=== PATIENT | male | born 1940 | race Caucasian/White ===

== ENCOUNTER 2020-05-03 12:34 | Observation (INO) | payer MEDICARE, BC ==
--- NOTE | 2020-05-03 13:48 | CT ---
PROCEDURE INFORMATION: Exam: CT Head Without Contrast Exam date and time: 05/03/2020 1:13 PM Age: 79 years old Clinical indication: Injury or trauma; Fall; Abrasion; Forehead; Additional info: Fall wed, confusion, drowsy TECHNIQUE: Imaging protocol: Computed tomography of the head without contrast. Radiation optimization: All CT scans at this facility use at least one of these dose optimization techniques: automated exposure control; mA and/or kV adjustment per patient size (includes targeted exams where dose is matched to clinical indication); or iterative reconstruction. COMPARISON: No relevant prior studies available. FINDINGS: Brain: There is an expected degree of age-related atrophy and chronic white matter ischemic changes. No acute intra-axial or extra-axial hemorrhage appreciated. Multiple small hypodensities at the basal ganglia consistent with remote lacunar infarctions. Cerebral ventricles: No ventriculomegaly. Bones/joints: Unremarkable. No acute fracture. Paranasal sinuses: Visualized sinuses are unremarkable. No fluid levels. Mastoid air cells: Visualized mastoid air cells are well aerated. Soft tissues: Unremarkable. IMPRESSION: 1. There is an expected degree of age-related atrophy and chronic white matter ischemic changes. 2. No acute intra-axial or extra-axial hemorrhage appreciated. 3. Multiple small hypodensities at the basal ganglia consistent with remote lacunar infarctions.
[2020-05-03 13:49] LABS: PTT,PARTIAL THROMBOPLSTIN TIME 27.7 SEC (22.0-34.0)
--- NOTE | 2020-05-03 14:10 | EDM.PDOC ---
"ED HPI GENERAL MEDICAL PROBLEM - General Chief Complaint: Head Injury Stated Complaint: HIT HEAD ON GRAVEL WED, HAS BEEN UNSTEADY SINCE Time Seen by Provider: 05/03/20 13:00 Source of Information: Reports: Patient, RN, RN Notes Reviewed History Limitations: Reports: No Limitations - History of Present Illness INITIAL COMMENTS - FREE TEXT/NARRATIVE: Patient presents to the ED via personal vehicle with complaints of unsteadiness following a fall two days ago. The patient states he tripped on the ice two days ago and landed on his left lateral face and head. He denies LOC during the event. The patient states his feels he has been more confused and unsteady. The patient denies recent illness, fever, shaking chills, nausea, vomiting, or diarrhea. He states he takes aspirin daily. - Related Data Allergies Allergy/AdvReac Type Severity Reaction Status Date / Time No Known Allergies Allergy Verified 05/03/20 12:53 Home Meds: Home Meds Aspirin [Halfprin] 81 mg PO DAILY 05/29/14 [History] Levothyroxine [Synthroid] 50 mcg PO ACBRK 05/29/14 [History] Lisinopril 30 mg PO BID 05/29/14 [History] Omeprazole 20 mg PO DAILY 05/29/14 [History] Saw [place] Fruit [Saw C[place]] 900 mg PO DAILY 05/29/14 [History] Simvastatin 40 mg PO DAILY 05/29/14 [History] metFORMIN [Glucophage] 500 mg PO DAILY 05/29/14 [History] Psyllium [Metamucil] 1 dose PO DAILY 01/07/15 [History] Naproxen Sodium [Aleve] 220 mg PO Q8HR PRN 01/08/15 [History] Past Medical History Other HEENT History: WEARS CORRECTIVE LENSES Cardiovascular History: Reports: High Cholesterol, Hypertension Other Cardiovascular History: MURMUR NO LONGER PRESENT PER PATIENT REPORT Gastrointestinal History: Reports: GERD Other Gastrointestinal History: INTERNAL HEMORRHOIDS; PANCOLONIC DIVERTICULOSIS Other Genitourinary History: 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 ED EXAM, HEAD INJURY - Physical Exam Exam: See Below Exam Limited By: No Limitations General Appearance: Alert, No Apparent Distress Head: Facial Abrasions (To left eyebrow), Facial Ecchymosis (To left eyebrow and left lateral chin), Facial Swelling (To left eyebrow and left lateral chin), Facial Tenderness. No: Scalp Lacerations, Scalp Swelling, Scalp Abrasions, Scalp Ecchymosis, Scalp Hematoma, Scalp Tenderness, Active Bleeding, Putnam's Sign, Facial Lacerations, Sinus Tenderness Nexus Criteria: No: Posterior, Midline Cervical Tenderness, Evidence of Intoxication, Altered Level of Consciousness, Focal Neurological Deficit, Painful Distraction Injuries Eyes: Bilateral Eye: EOMI, Normal Inspection, PERRL (4mm) Throat/Mouth: Normal Inspection, Normal Voice, No Airway Compromise Neck: Non-Tender, Full Range of Motion, Normal Alignment, Normal Inspection. No: Tenderness, Tender Lateral, Tender Midline Respiratory: No Respiratory Distress, Normal Breath Sounds, No Accessory Muscle Use, Chest Non-Tender, Decreased Breath Sounds Cardiovascular: Normal Peripheral Pulses, Regular Rate, Rhythm, No Edema, No Gallop, No JVD, No Murmur, No Rub GI/Abdominal Exam: Normal Bowel Sounds, Soft, Non-Tender, No Distention, No Mass, Pelvis Stable Back Exam: Normal Inspection, Full Range of Motion Extremities: Normal Inspection, Normal Range of Motion, Non-Tender, No Pedal Edema, Normal Capillary Refill Neurologic: Alert, Normal Mood/Affect, Oriented x 3, Abnormal Gait (Unsteady on feet), Other (Slow to respond). No: Facial Droop, Motor Weakness, Sensory Deficit Skin: Normal Color, Warm/Dry, Ecchymosis (To left eyebrow and lateral chin) - [place] Coma Score Best Eye Response ([place]): (4) Open Spontaneously Best Verbal Response ([place]): (5) Oriented Best Motor Response ([place]): (6) Obeys Commands Course - Vital Signs Last Recorded V/S: Last Vital Signs Temp 99.6 F 05/03/20 12:41 Pulse 88 05/03/20 12:41 Resp 18 05/03/20 12:41 BP 161/76 H 05/03/20 12:41 Pulse Ox 93 L 05/03/20 12:41 - Orders/Labs/Meds Labs: Laboratory Tests 05/03/20 05/03/20 05/03/20 Range/Units 13:25 13:25 13:25 WBC 5.1 (5.0-10.0) 10^3/uL RBC 4.21 L (4.6-6.2) 10^6/uL Hgb 13.4 L (14.0-18.0) g/dL Hct 39.4 L (40.0-54.0) % MCV 93.6 (80-100) fL MCH 31.8 (27.0-34.0) pg MCHC 34.0 (33.0-35.0) g/dL Plt Count 89 L (150-450) 10^3/uL Add Manual Diff Yes Neutrophils % (Manual) 68 (42-75) % Band Neutrophils % 3 % Lymphocytes % (Manual) 17 L (20-50) % Monocytes % (Manual) 10 H (2-8) % Eosinophils % (Manual) 1 (1-3) % Basophils % (Manual) 1 PT 10.8 (9.0-12.0) SEC INR 1.1 (0.9-1.2) APTT 27.7 (22.0-34.0) SEC Sodium 135 L (136-145) mmol/L Potassium 4.0 (3.5-5.1) mmol/L Chloride 97 L (98-107) mmol/L Carbon Dioxide 29 (21-32) mmol/L Anion Gap 13.0 (7-13) mEq/L BUN 20 H (7-18) mg/dL Creatinine 1.21 (0.70-1.30) mg/dL Est Cr Clr Drug Dosing 50.31 mL/min Estimated GFR (MDRD) 58 BUN/Creatinine Ratio 16.5 (No establ ref range) Glucose 101 H (74-99) mg/dL Calcium 9.0 (8.5-10.1) mg/dL Magnesium 1.7 L (1.8-2.4) mg/dL Total Bilirubin 0.6 (0.2-1.0) mg/dL AST 29 (15-37) U/L ALT 28 (16-63) U/L Alkaline Phosphatase 72 (46-116) U/L Ammonia (11-32) umol/L B-Natriuretic Peptide 47 (0-100) pg/ml Total Protein 7.8 (6.4-8.2) g/dL Albumin 3.8 (3.4-5.0) g/dL Globulin 4.0 Albumin/Globulin Ratio 0.9 TSH, Ultra Sensitive (0.36-3.74) uIU/mL Urine Color (YELLOW) Urine Appearance (CLEAR) Urine pH (5.0-9.0) Ur Specific [place] (1.005-1.030) Urine Protein (NEGATIVE) Urine Glucose (UA) (NEGATIVE) Urine Ketones (NEGATIVE) Urine Occult Blood (NEGATIVE) Urine Nitrite (NEGATIVE) Urine Bilirubin (NEGATIVE) Urine Urobilinogen (0.2-1.0) mg/dL Ur Leukocyte Esterase (NEGATIVE) Urine RBC /HPF Urine WBC (0-5/HPF) /HPF Ur Epithelial Cells (NOT SEEN) /HPF Urine Mucus (NOT SEEN) /LPF Urine Opiates Screen (NEGATIVE) Ur Oxycodone Screen (NEGATIVE) Urine Methadone Screen (NEGATIVE) Ur Barbiturates Screen (NEGATIVE) U Tricyclic Antidepress (NEGATIVE) Ur Phencyclidine Scrn (NEGATIVE) Ur Amphetamine Screen (NEGATIVE) U Methamphetamines Scrn (NEGATIVE) Urine MDMA Screen (NEGATIVE) U Benzodiazepines Scrn (NEGATIVE) Urine Cocaine Screen (NEGATIVE) U Marijuana (THC) Screen (NEGATIVE) Ethyl Alcohol (0) mg/dL 05/03/20 05/03/20 05/03/20 Range/Units 13:25 13:25 14:40 WBC (5.0-10.0) 10^3/uL RBC (4.6-6.2) 10^6/uL Hgb (14.0-18.0) g/dL Hct (40.0-54.0) % MCV (80-100) fL MCH (27.0-34.0) pg MCHC (33.0-35.0) g/dL Plt Count (150-450) 10^3/uL Add Manual Diff Neutrophils % (Manual) (42-75) % Band Neutrophils % % Lymphocytes % (Manual) (20-50) % Monocytes % (Manual) (2-8) % Eosinophils % (Manual) (1-3) % Basophils % (Manual) PT (9.0-12.0) SEC INR (0.9-1.2) APTT (22.0-34.0) SEC Sodium (136-145) mmol/L Potassium (3.5-5.1) mmol/L Chloride (98-107) mmol/L Carbon Dioxide (21-32) mmol/L Anion Gap (7-13) mEq/L BUN (7-18) mg/dL Creatinine (0.70-1.30) mg/dL Est Cr Clr Drug Dosing mL/min Estimated GFR (MDRD) BUN/Creatinine Ratio (No establ ref range) Glucose (74-99) mg/dL Calcium (8.5-10.1) mg/dL Magnesium (1.8-2.4) mg/dL Total Bilirubin (0.2-1.0) mg/dL AST (15-37) U/L ALT (16-63) U/L Alkaline Phosphatase (46-116) U/L Ammonia (11-32) umol/L B-Natriuretic Peptide (0-100) pg/ml Total Protein (6.4-8.2) g/dL Albumin (3.4-5.0) g/dL Globulin Albumin/Globulin Ratio TSH, Ultra Sensitive 2.38 (0.36-3.74) uIU/mL Urine Color Yellow (YELLOW) Urine Appearance Clear (CLEAR) Urine pH 6.0 (5.0-9.0) Ur Specific [place] 1.025 (1.005-1.030) Urine Protein 30 H (NEGATIVE) Urine Glucose (UA) Negative (NEGATIVE) Urine Ketones Negative (NEGATIVE) Urine Occult Blood Small H (NEGATIVE) Urine Nitrite Negative (NEGATIVE) Urine Bilirubin Negative (NEGATIVE) Urine Urobilinogen 0.2 (0.2-1.0) mg/dL Ur Leukocyte Esterase Negative (NEGATIVE) Urine RBC 0-5 /HPF Urine WBC 0-5 (0-5/HPF) /HPF Ur Epithelial Cells Few (NOT SEEN) /HPF Urine Mucus Few H (NOT SEEN) /LPF Urine Opiates Screen (NEGATIVE) Ur Oxycodone Screen (NEGATIVE) Urine Methadone Screen (NEGATIVE) Ur Barbiturates Screen (NEGATIVE) U Tricyclic Antidepress (NEGATIVE) Ur Phencyclidine Scrn (NEGATIVE) Ur Amphetamine Screen (NEGATIVE) U Methamphetamines Scrn (NEGATIVE) Urine MDMA Screen (NEGATIVE) U Benzodiazepines Scrn (NEGATIVE) Urine Cocaine Screen (NEGATIVE) U Marijuana (THC) Screen (NEGATIVE) Ethyl Alcohol < 3 (0) mg/dL 05/03/20 05/03/20 Range/Units 14:40 14:46 WBC (5.0-10.0) 10^3/uL RBC (4.6-6.2) 10^6/uL Hgb (14.0-18.0) g/dL Hct (40.0-54.0) % MCV (80-100) fL MCH (27.0-34.0) pg MCHC (33.0-35.0) g/dL Plt Count (150-450) 10^3/uL Add Manual Diff Neutrophils % (Manual) (42-75) % Band Neutrophils % % Lymphocytes % (Manual) (20-50) % Monocytes % (Manual) (2-8) % Eosinophils % (Manual) (1-3) % Basophils % (Manual) PT (9.0-12.0) SEC INR (0.9-1.2) APTT (22.0-34.0) SEC Sodium (136-145) mmol/L Potassium (3.5-5.1) mmol/L Chloride (98-107) mmol/L Carbon Dioxide (21-32) mmol/L Anion Gap (7-13) mEq/L BUN (7-18) mg/dL Creatinine (0.70-1.30) mg/dL Est Cr Clr Drug Dosing mL/min Estimated GFR (MDRD) BUN/Creatinine Ratio (No establ ref range) Glucose (74-99) mg/dL Calcium (8.5-10.1) mg/dL Magnesium (1.8-2.4) mg/dL Total Bilirubin (0.2-1.0) mg/dL AST (15-37) U/L ALT (16-63) U/L Alkaline Phosphatase (46-116) U/L Ammonia 51 H (11-32) umol/L B-Natriuretic Peptide (0-100) pg/ml Total Protein (6.4-8.2) g/dL Albumin (3.4-5.0) g/dL Globulin Albumin/Globulin Ratio TSH, Ultra Sensitive (0.36-3.74) uIU/mL Urine Color (YELLOW) Urine Appearance (CLEAR) Urine pH (5.0-9.0) Ur Specific [place] (1.005-1.030) Urine Protein (NEGATIVE) Urine Glucose (UA) (NEGATIVE) Urine Ketones (NEGATIVE) Urine Occult Blood (NEGATIVE) Urine Nitrite (NEGATIVE) Urine Bilirubin (NEGATIVE) Urine Urobilinogen (0.2-1.0) mg/dL Ur Leukocyte Esterase (NEGATIVE) Urine RBC /HPF Urine WBC (0-5/HPF) /HPF Ur Epithelial Cells (NOT SEEN) /HPF Urine Mucus (NOT SEEN) /LPF Urine Opiates Screen Negative (NEGATIVE) Ur Oxycodone Screen Negative (NEGATIVE) Urine Methadone Screen Negative (NEGATIVE) Ur Barbiturates Screen Negative (NEGATIVE) U Tricyclic Antidepress Negative (NEGATIVE) Ur Phencyclidine Scrn Negative (NEGATIVE) Ur Amphetamine Screen Negative (NEGATIVE) U Methamphetamines Scrn Negative (NEGATIVE) Urine MDMA Screen Negative (NEGATIVE) U Benzodiazepines Scrn Negative (NEGATIVE) Urine Cocaine Screen Negative (NEGATIVE) U Marijuana (THC) Screen Negative (NEGATIVE) Ethyl Alcohol (0) mg/dL - Radiology Interpretation Free Text/Narrative:: [facility] - [facility] Final Radiology Report Call: [phone] assistance Online chat: [email or web address] Name: YONIS MARTE Age: 79Years M Date: 05/03/2020 SSN: -- : [id number] Study: CT HEAD WO CONT Requesting Physician: Krystal Stroud Images: [id number] Addl Studies: Provided Clinical History: fall wed, confusion, drowsy Contrast: Without Contrast Medium: Contrast Amount: Contrast Method: Page 1 of 2 PROCEDURE INFORMATION: Exam: CT Head Without Contrast Exam date and time: 05/03/2020 1:13 PM Age: 79 years old Clinical indication: Injury or trauma; Fall; Abrasion; Forehead; Additional info: Fall wed, confusion, drowsy TECHNIQUE: Imaging protocol: Computed tomography of the head without contrast. Radiation optimization: All CT scans at this facility use at least one of these dose optimization techniques: automated exposure control; mA and/or kV adjustment per patient size (includes targeted exams where dose is matched to clinical indication); or iterative reconstruction. COMPARISON: No relevant prior studies available. FINDINGS: Brain: There is an expected degree of age-related atrophy and chronic white matter ischemic changes. No acute intra-axial or extra-axial hemorrhage appreciated. Multiple small hypodensities at the basal ganglia consistent with remote lacunar infarctions. Cerebral ventricles: No ventriculomegaly. Bones/joints: Unremarkable. No acute fracture. Paranasal sinuses: Visualized sinuses are unremarkable. No fluid levels. Mastoid air cells: Visualized mastoid air cells are well aerated. Soft tissues: Unremarkable. IMPRESSION: 1. There is an expected degree of age-related atrophy and chronic white matter ischemic changes. 2. No acute intra-axial or extra-axial hemorrhage appreciated. 3. Multiple small hypodensities at the basal ganglia consistent with remote lacunar infarctions. YONIS MARTE | Final Radiology Report CONFIDENTIALITY STATEMENT This report is intended only for use by the referring physician, and only in accordance with law. If you received this in error, call [phone]. Page 2 of 2 Thank you for allowing us to participate in the care of your patient. Dictated and Authenticated by: Valente Barnett MD 05/03/2020 1:48 PM Central Time ([place] & [place]) - Re-Assessments/Exams Free Text/Narrative Re-Assessment/Exam: 05/03/20 CT head unremarkable for acute processes. Patient noted to have unsteady gait and intermittent confusion while here, attempted to leave multiple times despite multiple redirections regarding wait for imaging and labs. brought to bedside. ETOH/Tox, Ammonia, TSH added to labs. Tox and ETOH negative. Ammonia 51, patient's PCP states this is a somewhat normal level for him. TSH WNL. Case discussed with Dr. Murray who agreed to accept this patient for observation status due to concussion syndrome with unsteady gait and intermittent confusion. Plan of care discussed with patient and his who both verbalized understanding and agreement with the aforementioned plan. Departure - Departure Time of Disposition: 16:02 Disposition: Refer to Observation Condition: Fair Clinical Impression: Concussion with no loss of consciousness, Unsteady gait when walking - Discharge Information Sepsis Event Note (ED) - Evaluation Sepsis Screening Result: No Definite Risk - Focused Exam Vital Signs: Vital Signs Temp Pulse Resp BP Pulse Ox 05/03/20 12:41 99.6 F 88 18 161/76 H 93 L"
[2020-05-03] MEDS ORDERED: Ondansetron 4 MG/2 ML SDV IVPUSH PRN (16:12)
[2020-05-03] MEDS ORDERED: Docusate Sodium 100 MG Cap PO PRN (16:12)
[2020-05-03] MEDS ORDERED: Magnesium Hydroxide 400 MG/5 ML Susp 30 ML Cup PO PRN (16:12)
[2020-05-03] MEDS ORDERED: Acetaminophen 325 MG Tab PO PRN (16:12)
--- NOTE | 2020-05-03 16:23 | PCM.HP ---
H&P History of Present Illness - General Date of Service: 05/03/20 Admit Problem/Dx: Admission Diagnosis/Problem Admission Diagnosis/Problem Fall at home Source of Information: Patient History Limitations: Reports: No Limitations - History of Present Illness Initial Comments - Free Text/Narative: Alejandro is a 79-year-old male with past medical history significant for hypothyr oidism, hypertension, ADL who presented to the ED with the company of spouse for evaluation of unsteady gait and confusion following a fall. Patient apparently tripped on ice 2 days ago and fell to the ground. He landed on his left lateral face and head. Patient said he was working on edges when this happened. He did not lose consciousness. He has been doing okay until today when the alex leung noted he was acting more confused and appeared unsteady on his gait. She requested he come to the ED for evaluation. He denies headache, neck pain. Denies body pain. Denies diarrhea abdominal pain, nausea, vomiting. No fever or chills. He denies cough, shortness of breath, body pains. He denies any recent travel or ill contact. In the ED vitals unremarkable. Labs essentially unremarkable. CT head was negative for acute intracranial process. No evidence of fracture. COVID-19 donald t was positive. Admission was requested for further management. Onset of Symptoms: Reports: Gradual Duration of Symptoms: Reports: Day(s): Location: Reports: Head Quality: Reports: Ache Severity: Mild Improves with: Reports: None Worsens with: Reports: None Associated Symptoms: Reports: No Other Symptoms - Related Data Allergies/Adverse Reactions: Allergies Allergy/AdvReac Type Severity Reaction Status Date / Time No Known Allergies Allergy Verified 05/03/20 12:53 Home Medications: Home Meds Aspirin [Halfprin] 81 mg PO DAILY 05/29/14 [History] Levothyroxine [Synthroid] 50 mcg PO ACBRK 05/29/14 [History] Lisinopril 30 mg PO BID 05/29/14 [History] Omeprazole 20 mg PO DAILY 05/29/14 [History] Saw Shelton Fruit [Saw Shelton] 900 mg PO DAILY 05/29/14 [History] Simvastatin 40 mg PO DAILY 05/29/14 [History] metFORMIN [Glucophage] 500 mg PO DAILY 05/29/14 [History] Psyllium [Metamucil] 1 dose PO DAILY 01/07/15 [History] Naproxen Sodium [Aleve] 220 mg PO Q8HR PRN 01/08/15 [History] Past Medical History Other HEENT History: WEARS CORRECTIVE LENSES Cardiovascular History: Reports: High Cholesterol, Hypertension Other Cardiovascular History: MURMUR NO LONGER PRESENT PER PATIENT REPORT Gastrointestinal History: Reports: GERD Other Gastrointestinal History: INTERNAL HEMORRHOIDS; PANCOLONIC DIVERTICULOSIS Other Genitourinary History: 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 Other Musculoskeletal History: SYNOVIAL CYST OF LUMBAR FACET JOINT - Past Surgical History Other HEENT Surgeries/Procedures: ADENOIDECTOMY Other Male Surgeries/Procedures: CIRCUMCISION 2007 Other Musculoskeletal Surgeries/Procedures:: SYNOVIAL CYST OF THE LUMBAR REMOVED Social & Family History - Tobacco Use Tobacco Use Status *Q: Never Tobacco User Second Hand Smoke Exposure: No - Recreational Drug Use Recreational Drug Use: No H&P Review of Systems - Review of Systems: Review Of Systems: See Below General: Reports: No Symptoms HEENT: Reports: No Symptoms Pulmonary: Reports: No Symptoms Cardiovascular: Reports: No Symptoms Gastrointestinal: Reports: No Symptoms Genitourinary: Reports: No Symptoms Musculoskeletal: Reports: No Symptoms Skin: Reports: No Symptoms Psychiatric: Reports: No Symptoms Neurological: Reports: No Symptoms Hematologic/Lymphatic: Reports: No Symptoms Immunologic: Reports: No Symptoms Exam - Exam Exam: See Below - Vital Signs Vital Signs: Last Vital Signs Temp 99.6 F 05/03/20 12:41 Pulse 88 05/03/20 12:41 Resp 18 05/03/20 12:41 BP 161/76 H 05/03/20 12:41 Pulse Ox 93 L 05/03/20 12:41 Weight: 184 lb - Exam General: Alert, Oriented, Other (Bruises noted to the forehead and left side of the face.) HEENT: PERRLA, Hearing Intact, Mucosa Moist & [place], Nares Patent, Normal Nasal Septum, Posterior Pharynx Clear, Conjunctiva Clear, EOMI, EACs Clear, TMs Clear Neck: Supple, Trachea Midline, 2 Lungs: Clear to Auscultation, Normal Respiratory Effort Cardiovascular: Regular Rate, Regular Rhythm GI/Abdominal Exam: Normal Bowel Sounds, Soft, Non-Tender, No Organomegaly, No Distention, No Abnormal Bruit, No Mass, Pelvis Stable (Male) Exam: No Hernia, Normal Inspection, Normal Prostate, Circumcised Rectal (Males) Exam: Normal Exam, Normal Rectal Tone, Prostate Normal Back Exam: Normal Inspection, Full Range of Motion, NT Extremities: Normal Inspection, Normal Range of Motion, Non-Tender, No Pedal Ruben ma, Normal Capillary Refill Skin: Warm, Dry, Intact Neurological: Cranial Nerves Intact, Reflexes Equal Bilateral Neuro Extensive - Mental Status: Alert, Oriented x3, Normal Mood/Affect, Normal Cognition Neuro Extensive - Motor, Sensory, Reflexes: CN II-XII Intact, Normal Gait, Normal Reflexes Psychiatric: Alert, Normal Affect, Normal Mood - Patient Data Lab Results Last 24 hrs: Laboratory Results - last 24 hr 05/03/20 05/03/20 05/03/20 Range/Units 13:25 13:25 13:25 WBC 5.1 (5.0-10.0) 10^3/uL RBC 4.21 L (4.6-6.2) 10^6/uL Hgb 13.4 L (14.0-18.0) g/dL Hct 39.4 L (40.0-54.0) % MCV 93.6 (80-100) fL MCH 31.8 (27.0-34.0) pg MCHC 34.0 (33.0-35.0) g/dL Plt Count 89 L (150-450) 10^3/uL Add Manual Diff Yes Neutrophils % (Manual) 68 (42-75) % Band Neutrophils % 3 % Lymphocytes % (Manual) 17 L (20-50) % Monocytes % (Manual) 10 H (2-8) % Eosinophils % (Manual) 1 (1-3) % Basophils % (Manual) 1 PT 10.8 (9.0-12.0) SEC INR 1.1 (0.9-1.2) APTT 27.7 (22.0-34.0) SEC Sodium 135 L (136-145) mmol/L Potassium 4.0 (3.5-5.1) mmol/L Chloride 97 L (98-107) mmol/L Carbon Dioxide 29 (21-32) mmol/L Anion Gap 13.0 (7-13) mEq/L BUN 20 H (7-18) mg/dL Creatinine 1.21 (0.70-1.30) mg/dL Est Cr Clr Drug Dosing 50.31 mL/min Estimated GFR (MDRD) 58 BUN/Creatinine Ratio 16.5 (No establ ref range) Glucose 101 H (74-99) mg/dL Calcium 9.0 (8.5-10.1) mg/dL Magnesium 1.7 L (1.8-2.4) mg/dL Total Bilirubin 0.6 (0.2-1.0) mg/dL AST 29 (15-37) U/L ALT 28 (16-63) U/L Alkaline Phosphatase 72 (46-116) U/L Ammonia (11-32) umol/L B-Natriuretic Peptide 47 (0-100) pg/ml Total Protein 7.8 (6.4-8.2) g/dL Albumin 3.8 (3.4-5.0) g/dL Globulin 4.0 Albumin/Globulin Ratio 0.9 TSH, Ultra Sensitive (0.36-3.74) uIU/mL Urine Color (YELLOW) Urine Appearance (CLEAR) Urine pH (5.0-9.0) Ur Specific [place] (1.005-1.030) Urine Protein (NEGATIVE) Urine Glucose (UA) (NEGATIVE) Urine Ketones (NEGATIVE) Urine Occult Blood (NEGATIVE) Urine Nitrite (NEGATIVE) Urine Bilirubin (NEGATIVE) Urine Urobilinogen (0.2-1.0) mg/dL Ur Leukocyte Esterase (NEGATIVE) Urine RBC /HPF Urine WBC (0-5/HPF) /HPF Ur Epithelial Cells (NOT SEEN) /HPF Urine Mucus (NOT SEEN) /LPF Urine Opiates Screen (NEGATIVE) Ur Oxycodone Screen (NEGATIVE) Urine Methadone Screen (NEGATIVE) Ur Barbiturates Screen (NEGATIVE) U Tricyclic Antidepress (NEGATIVE) Ur Phencyclidine Scrn (NEGATIVE) Ur Amphetamine Screen (NEGATIVE) U Methamphetamines Scrn (NEGATIVE) Urine MDMA Screen (NEGATIVE) U Benzodiazepines Scrn (NEGATIVE) Urine Cocaine Screen (NEGATIVE) U Marijuana (THC) Screen (NEGATIVE) Ethyl Alcohol (0) mg/dL SARS CoV-2 RNA Rapid SKYLAR (NEGATIVE) 05/03/20 05/03/20 05/03/20 Range/Units 13:25 13:25 14:40 WBC (5.0-10.0) 10^3/uL RBC (4.6-6.2) 10^6/uL Hgb (14.0-18.0) g/dL Hct (40.0-54.0) % MCV (80-100) fL MCH (27.0-34.0) pg MCHC (33.0-35.0) g/dL Plt Count (150-450) 10^3/uL Add Manual Diff Neutrophils % (Manual) (42-75) % Band Neutrophils % % Lymphocytes % (Manual) (20-50) % Monocytes % (Manual) (2-8) % Eosinophils % (Manual) (1-3) % Basophils % (Manual) PT (9.0-12.0) SEC INR (0.9-1.2) APTT (22.0-34.0) SEC Sodium (136-145) mmol/L Potassium (3.5-5.1) mmol/L Chloride (98-107) mmol/L Carbon Dioxide (21-32) mmol/L Anion Gap (7-13) mEq/L BUN (7-18) mg/dL Creatinine (0.70-1.30) mg/dL Est Cr Clr Drug Dosing mL/min Estimated GFR (MDRD) BUN/Creatinine Ratio (No establ ref range) Glucose (74-99) mg/dL Calcium (8.5-10.1) mg/dL Magnesium (1.8-2.4) mg/dL Total Bilirubin (0.2-1.0) mg/dL AST (15-37) U/L ALT (16-63) U/L Alkaline Phosphatase (46-116) U/L Ammonia (11-32) umol/L B-Natriuretic Peptide (0-100) pg/ml Total Protein (6.4-8.2) g/dL Albumin (3.4-5.0) g/dL Globulin Albumin/Globulin Ratio TSH, Ultra Sensitive 2.38 (0.36-3.74) uIU/mL Urine Color Yellow (YELLOW) Urine Appearance Clear (CLEAR) Urine pH 6.0 (5.0-9.0) Ur Specific [place] 1.025 (1.005-1.030) Urine Protein 30 H (NEGATIVE) Urine Glucose (UA) Negative (NEGATIVE) Urine Ketones Negative (NEGATIVE) Urine Occult Blood Small H (NEGATIVE) Urine Nitrite Negative (NEGATIVE) Urine Bilirubin Negative (NEGATIVE) Urine Urobilinogen 0.2 (0.2-1.0) mg/dL Ur Leukocyte Esterase Negative (NEGATIVE) Urine RBC 0-5 /HPF Urine WBC 0-5 (0-5/HPF) /HPF Ur Epithelial Cells Few (NOT SEEN) /HPF Urine Mucus Few H (NOT SEEN) /LPF Urine Opiates Screen (NEGATIVE) Ur Oxycodone Screen (NEGATIVE) Urine Methadone Screen (NEGATIVE) Ur Barbiturates Screen (NEGATIVE) U Tricyclic Antidepress (NEGATIVE) Ur Phencyclidine Scrn (NEGATIVE) Ur Amphetamine Screen (NEGATIVE) U Methamphetamines Scrn (NEGATIVE) Urine MDMA Screen (NEGATIVE) U Benzodiazepines Scrn (NEGATIVE) Urine Cocaine Screen (NEGATIVE) U Marijuana (THC) Screen (NEGATIVE) Ethyl Alcohol < 3 (0) mg/dL SARS CoV-2 RNA Rapid SKYLAR (NEGATIVE) 05/03/20 05/03/20 05/03/20 Range/Units 14:40 14:46 15:50 WBC (5.0-10.0) 10^3/uL RBC (4.6-6.2) 10^6/uL Hgb (14.0-18.0) g/dL Hct (40.0-54.0) % MCV (80-100) fL MCH (27.0-34.0) pg MCHC (33.0-35.0) g/dL Plt Count (150-450) 10^3/uL Add Manual Diff Neutrophils % (Manual) (42-75) % Band Neutrophils % % Lymphocytes % (Manual) (20-50) % Monocytes % (Manual) (2-8) % Eosinophils % (Manual) (1-3) % Basophils % (Manual) PT (9.0-12.0) SEC INR (0.9-1.2) APTT (22.0-34.0) SEC Sodium (136-145) mmol/L Potassium (3.5-5.1) mmol/L Chloride (98-107) mmol/L Carbon Dioxide (21-32) mmol/L Anion Gap (7-13) mEq/L BUN (7-18) mg/dL Creatinine (0.70-1.30) mg/dL Est Cr Clr Drug Dosing mL/min Estimated GFR (MDRD) BUN/Creatinine Ratio (No establ ref range) Glucose (74-99) mg/dL Calcium (8.5-10.1) mg/dL Magnesium (1.8-2.4) mg/dL Total Bilirubin (0.2-1.0) mg/dL AST (15-37) U/L ALT (16-63) U/L Alkaline Phosphatase (46-116) U/L Ammonia 51 H (11-32) umol/L B-Natriuretic Peptide (0-100) pg/ml Total Protein (6.4-8.2) g/dL Albumin (3.4-5.0) g/dL Globulin Albumin/Globulin Ratio TSH, Ultra Sensitive (0.36-3.74) uIU/mL Urine Color (YELLOW) Urine Appearance (CLEAR) Urine pH (5.0-9.0) Ur Specific [place] (1.005-1.030) Urine Protein (NEGATIVE) Urine Glucose (UA) (NEGATIVE) Urine Ketones (NEGATIVE) Urine Occult Blood (NEGATIVE) Urine Nitrite (NEGATIVE) Urine Bilirubin (NEGATIVE) Urine Urobilinogen (0.2-1.0) mg/dL Ur Leukocyte Esterase (NEGATIVE) Urine RBC /HPF Urine WBC (0-5/HPF) /HPF Ur Epithelial Cells (NOT SEEN) /HPF Urine Mucus (NOT SEEN) /LPF Urine Opiates Screen Negative (NEGATIVE) Ur Oxycodone Screen Negative (NEGATIVE) Urine Methadone Screen Negative (NEGATIVE) Ur Barbiturates Screen Negative (NEGATIVE) U Tricyclic Antidepress Negative (NEGATIVE) Ur Phencyclidine Scrn Negative (NEGATIVE) Ur Amphetamine Screen Negative (NEGATIVE) U Methamphetamines Scrn Negative (NEGATIVE) Urine MDMA Screen Negative (NEGATIVE) U Benzodiazepines Scrn Negative (NEGATIVE) Urine Cocaine Screen Negative (NEGATIVE) U Marijuana (THC) Screen Negative (NEGATIVE) Ethyl Alcohol (0) mg/dL SARS CoV-2 RNA Rapid SKYLAR Positive H (NEGATIVE) Result Diagrams: 05/03/20 13:25 05/03/20 13:25 - Problem List (1) Acute encephalopathy SNOMED Code(s): 32987687, 794880945 ICD Code: G93.40 - ENCEPHALOPATHY, UNSPECIFIED Status: Acute Current Visit: Yes (2) Diabetes mellitus type 2, controlled SNOMED Code(s): 80681813, 876158931 ICD Code: E11.9 - TYPE 2 DIABETES MELLITUS WITHOUT COMPLICATIONS Status: Acute Current Visit: Yes (3) Accident due to mechanical fall without injury SNOMED Code(s): 58048538368529 ICD Code: W19.XXXA - UNSPECIFIED FALL, INITIAL ENCOUNTER Status: Acute Current Visit: Yes (4) Accident due to mechanical fall without injury SNOMED Code(s): 64866533522073 ICD Code: W19.XXXA - UNSPECIFIED FALL, INITIAL ENCOUNTER Status: Acute Current Visit: Yes (5) COVID-19 virus infection SNOMED Code(s): 895770278 ICD Code: U07.1 - COVID-19 Status: Acute Current Visit: Yes Problem List Initiated/Reviewed/Updated: Yes Orders Last 24hrs: Active Orders 24 hr Category Date Time Status Admission Diagnosis [ADT] Stat ADT 05/03/20 15:35 Ordered Admission Status [Patient Status] [ADT] Routine ADT 05/03/20 15:35 Active Ambulate [RC] ASDIRECTED Care 05/03/20 16:12 Ordered Blood Glucose Check, Bedside [RC] QIDACANDBED Care 05/03/20 16:12 Ordered Height and Weight [RC] DAILY Care 05/03/20 16:12 Ordered Intake and Output [RC] QSHIFT Care 05/03/20 16:13 Ordered Notify Provider Vital Signs [RC] ASDIRECTED Care 05/03/20 16:13 Ordered Oxygen Therapy [RC] PRN Care 05/03/20 16:12 Ordered VTE/DVT Education [RC] PER UNIT ROUTINE Care 05/03/20 16:12 Ordered Vital Signs [RC] Q4H Care 05/03/20 16:12 Ordered OT Evaluation and Treatment [CONS] Routine Cons 05/03/20 16:12 Ordered PT Evaluation and Treatment [CONS] Routine Cons 05/03/20 16:12 Ordered Regular Diet [DIET] Diet 05/03/20 Dinner Ordered CBC W/O DIFF,HEMOGRAM [HEME] DAILY Lab 05/04/20 07:00 Ordered CBC W/O DIFF,HEMOGRAM [HEME] DAILY Lab 05/05/20 07:00 Ordered CBC W/O DIFF,HEMOGRAM [HEME] DAILY Lab 05/06/20 07:00 Ordered CBC W/O DIFF,HEMOGRAM [HEME] DAILY Lab 05/07/20 07:00 Ordered CBC W/O DIFF,HEMOGRAM [HEME] DAILY Lab 05/08/20 07:00 Ordered COMPREHENSIVE METABOLIC PN,CMP [CHEM] DAILY Lab 05/04/20 07:00 Ordered COMPREHENSIVE METABOLIC PN,CMP [CHEM] DAILY Lab 05/05/20 07:00 Ordered COMPREHENSIVE METABOLIC PN,CMP [CHEM] DAILY Lab 05/06/20 07:00 Ordered COMPREHENSIVE METABOLIC PN,CMP [CHEM] DAILY Lab 05/07/20 07:00 Ordered COMPREHENSIVE METABOLIC PN,CMP [CHEM] DAILY Lab 05/08/20 07:00 Ordered CREATINE KINASE,CK [CHEM] Routine Lab 05/03/20 16:12 Ordered FERRITIN [CHEM] DAILY Lab 05/04/20 07:00 Ordered FERRITIN [CHEM] DAILY Lab 05/05/20 07:00 Ordered FERRITIN [CHEM] DAILY Lab 05/06/20 07:00 Ordered FERRITIN [CHEM] DAILY Lab 05/07/20 07:00 Ordered FERRITIN [CHEM] DAILY Lab 05/08/20 07:00 Ordered INR,PT,PROTHROMBIN TIME [COAG] DAILY Lab 05/04/20 07:00 Ordered INR,PT,PROTHROMBIN TIME [COAG] DAILY Lab 05/05/20 07:00 Ordered INR,PT,PROTHROMBIN TIME [COAG] DAILY Lab 05/06/20 07:00 Ordered INR,PT,PROTHROMBIN TIME [COAG] DAILY Lab 05/07/20 07:00 Ordered INR,PT,PROTHROMBIN TIME [COAG] DAILY Lab 05/08/20 07:00 Ordered LACTATE DEHYDROGENASE,LDH [CHEM] DAILY Lab 05/04/20 07:00 Ordered LACTATE DEHYDROGENASE,LDH [CHEM] DAILY Lab 05/05/20 07:00 Ordered LACTATE DEHYDROGENASE,LDH [CHEM] DAILY Lab 05/06/20 07:00 Ordered LACTATE DEHYDROGENASE,LDH [CHEM] DAILY Lab 05/07/20 07:00 Ordered LACTATE DEHYDROGENASE,LDH [CHEM] DAILY Lab 05/08/20 07:00 Ordered MAGNESIUM [CHEM] Routine Lab 05/03/20 16:12 Ordered PHOSPHORUS [CHEM] Routine Lab 05/03/20 16:12 Ordered PTT,PARTIAL THROMBOPLSTIN TIME [COAG] DAILY Lab 05/04/20 07:00 Ordered PTT,PARTIAL THROMBOPLSTIN TIME [COAG] DAILY Lab 05/05/20 07:00 Ordered PTT,PARTIAL THROMBOPLSTIN TIME [COAG] DAILY Lab 05/06/20 07:00 Ordered PTT,PARTIAL THROMBOPLSTIN TIME [COAG] DAILY Lab 05/07/20 07:00 Ordered PTT,PARTIAL THROMBOPLSTIN TIME [COAG] DAILY Lab 05/08/20 07:00 Ordered TROPONIN I [CHEM] DAILY Lab 05/04/20 07:00 Ordered TROPONIN I [CHEM] DAILY Lab 05/05/20 07:00 Ordered TROPONIN I [CHEM] DAILY Lab 05/06/20 07:00 Ordered TROPONIN I [CHEM] DAILY Lab 05/07/20 07:00 Ordered TROPONIN I [CHEM] DAILY Lab 05/08/20 07:00 Ordered Acetaminophen [TylenoL] Med 05/03/20 16:12 Ordered 650 mg PO Q4H PRN Aspirin [Halfprin] Med 05/04/20 09:00 Ordered 81 mg PO DAILY Docusate Sodium [Colace] Med 05/03/20 16:12 Ordered 100 mg PO BID PRN Heparin Sodium Med 05/03/20 21:00 Ordered 5,000 units SUBCUT Q12HR Levothyroxine [Synthroid] Med 05/04/20 06:00 Ordered 50 mcg PO ACBRK Lisinopril [Lisinopril] Med 05/03/20 21:00 Ordered 30 mg PO BID Magnesium Hydroxide [Milk of Magnesia] Med 05/03/20 16:12 Ordered 30 ml PO Q12H PRN Omeprazole Med 05/04/20 09:00 Ordered 20 mg PO DAILY Ondansetron [Zofran] Med 05/03/20 16:12 Ordered 4 mg IVPUSH Q6H PRN Psyllium [Metamucil] Med 05/04/20 09:00 Ordered 1 dose PO DAILY Simvastatin [Zocor] Med 05/04/20 09:00 Ordered 40 mg PO DAILY metFORMIN [Glucophage] Med 05/04/20 09:00 Ordered 500 mg PO DAILY Resuscitation Status Routine Resus Stat 05/03/20 16:12 Ordered Medication Orders Acetaminophen (Tylenol) 650 mg PO Q4H PRN PRN Reason: Pain (Mild 1-3)/fever Aspirin (Halfprin) 81 mg PO DAILY MANN Docusate Sodium (Colace) 100 mg PO BID PRN PRN Reason: Constipation Heparin Sodium (Porcine) (Heparin Sodium) 5,000 units SUBCUT Q12HR MANN Levothyroxine Sodium (Synthroid) 50 mcg PO ACBRK MANN Magnesium Hydroxide (Milk Of Magnesia) 30 ml PO Q12H PRN PRN Reason: Constipation Metformin HCl (Glucophage) 500 mg PO DAILY MANN Non-Formulary Medication (Lisinopril [Lisinopril]) 30 mg PO BID MANN Omeprazole (Omeprazole) 20 mg PO DAILY MANN Ondansetron HCl (Zofran) 4 mg IVPUSH Q6H PRN PRN Reason: Nausea/Vomiting Psyllium Hydrophilic Mucilloid (Metamucil) gm PO DAILY MANN Simvastatin (Zocor) 40 mg PO DAILY MANN Assessment/Plan Comment:: #Acute encephalopathy due to head concussion injury #Unsteady gait due to above #Mechanical fall Patient reportedly had a mechanical fall 2 days ago Presented to the ED after spouse noted he was acting confused and being unsteady on his gait Patient alert and oriented to time place and person. Answers questions appropriately. He does have unsteady gait CT head was negative for acute intracranial process or fracture Admit to [facility] medical floor Monitor vitals Physical therapy and Occupational Therapy Monitor mental status #COVID-19 screen was positive Patient has no symptoms. Denies cough, fever, chills. Not hypoxic Will not start him on dexamethasone given that patient is not hypoxic Daily Covid labs Contact isolation #Hypertension Continue home medication #Type 2 diabetes On Metformin. Continue Accu-Cheks #Hypothyroidism On Synthroid. Continue #Diabetic diet #Full code
[2020-05-03] MEDS: Lisinopril 10 MG Tab PO SCH (20:51)
[2020-05-03] MEDS ORDERED: Heparin Sodium 5,000 Units/ML Vial SUBCUT SCH (21:00)
[2020-05-03] MEDS ORDERED: Simvastatin 40 MG Tab PO SCH (21:00)
[2020-05-04] MEDS ORDERED: Levothyroxine 50 MCG Tab PO SCH (06:00)
[2020-05-04] MEDS ORDERED: Omeprazole 20 MG Cap.CR PO SCH (06:00)
[2020-05-04 06:51] LABS: CHLORIDE,CL 98 mmol/L (98-107); SODIUM,NA 136 mmol/L (136-145)
[2020-05-04 07:04] LABS: PTT,PARTIAL THROMBOPLSTIN TIME 28.9 SEC (22.0-34.0)
[2020-05-04] MEDS: Lisinopril 10 MG Tab PO SCH (08:26)
[2020-05-04] MEDS ORDERED: Aspirin 81 MG Tab.EC PO SCH (09:00)
[2020-05-04] MEDS ORDERED: Psyllium 0.52 GM Cap PO SCH (09:00)
[2020-05-04] MEDS ORDERED: metFORMIN 500 MG Tab PO SCH (09:00)
[2020-05-04 10:49] VITALS: BP 127/56; PULSE 93
--- NOTE | 2020-05-04 11:10 | PCM.DCSUM1 ---
Discharge Summary - Hospital Course Free Text/Narrative:: Alejandro is a 79-year-old male with past medical history significant for hypothyroidism, hypertension, ADL who presented to the ED in the company of spouse for evaluation of unsteady gait and confusion following a fall. Patient apparently tripped on ice 2 days prior and fell to the ground. He landed on his left lateral face and head. He did not lose consciousness. He was been doing okay until the day of presentation when the noted he was acting more confused and appeared unsteady on his feet. CT head was negative for acute intracranial process. No evidence of fracture. He was screened for COVID-19 which came back positive. He was subsequently admitted. Overnight patient remained stable. Remained asymptomatic. Did not require any oxygen. He was oriented x3. Answers questions appropriately. Confusion appears to have resolved. Nursing staff did walk with patient this morning and he did well. No evidence of unsteadiness. Decision was made to discharge patient home to self quarantine. Patient agreed with plan. He will follow-up with PCP. Diagnosis: Stroke: No - Discharge Data Discharge Date: 05/04/20 Discharge Disposition: Home, Self-Care 01 Condition: Stable - Referral to Home Health Primary Care Physician: PCP None - Discharge Diagnosis/Problem(s) (1) Acute encephalopathy SNOMED Code(s): 50860580, 898578381 ICD Code: G93.40 - ENCEPHALOPATHY, UNSPECIFIED Status: Acute Current Visit: Yes (2) Diabetes mellitus type 2, controlled SNOMED Code(s): 20400737, 634051033 ICD Code: E11.9 - TYPE 2 DIABETES MELLITUS WITHOUT COMPLICATIONS Status: Acute Current Visit: Yes (3) Accident due to mechanical fall without injury SNOMED Code(s): 11625855232419 ICD Code: W19.XXXA - UNSPECIFIED FALL, INITIAL ENCOUNTER Status: Acute Current Visit: Yes (4) Accident due to mechanical fall without injury SNOMED Code(s): 63503140313874 ICD Code: W19.XXXA - UNSPECIFIED FALL, INITIAL ENCOUNTER Status: Acute Current Visit: Yes (5) COVID-19 virus infection SNOMED Code(s): 317169908 ICD Code: U07.1 - COVID-19 Status: Acute Current Visit: Yes - Patient Summary/Data Consults: Consultations 05/03/20 16:12 OT Evaluation and Treatment [CONS] Routine PT Evaluation and Treatment [CONS] Routine - Patient Instructions Diet: Regular Diet as Tolerated Activity: As Tolerated Showering/Bathing: May Shower Notify Provider of: Fever, Increased Pain - Discharge Plan *PRESCRIPTION DRUG MONITORING PROGRAM REVIEWED*: Not Applicable *COPY OF PRESCRIPTION DRUG MONITORING REPORT IN PATIENT TRES: Not Applicable Home Medications: Home Meds Aspirin [Halfprin] 81 mg PO DAILY 05/29/14 [History] Lisinopril 15 mg PO DAILY 05/29/14 [History] Omeprazole 20 mg PO BID 05/29/14 [History] Saw Theresa Fruit [Saw Theresa] 900 mg PO DAILY 05/29/14 [History] Simvastatin 40 mg PO BEDTIME 05/29/14 [History] metFORMIN [Glucophage] 500 mg PO DAILY 05/29/14 [History] Levothyroxine 75 mcg PO DAILY 05/03/20 [History] Metoprolol Succinate 50 mg PO DAILY 05/03/20 [History] Sertraline HCl 50 mg PO DAILY 05/03/20 [History] Oxygen Therapy Mode: Room Air Forms: ED Department Discharge Referrals: PCP,None [Primary Care Provider] - - Discharge Summary/Plan Comment DC Time >30 min.: Yes - General Info Date of Service: 05/04/20 Admission Dx/Problem (Free Text: Admission Diagnosis/Problem Admission Diagnosis/Problem S/p Fall at home Functional Status: Reports: Pain Controlled - Review of Systems General: Reports: No Symptoms HEENT: Reports: No Symptoms Pulmonary: Reports: No Symptoms Cardiovascular: Reports: No Symptoms Gastrointestinal: Reports: No Symptoms Genitourinary: Reports: No Symptoms Musculoskeletal: Reports: No Symptoms Skin: Reports: No Symptoms Neurological: Reports: No Symptoms Psychiatric: Reports: No Symptoms - Patient Data Vitals - Most Recent: Last Vital Signs Temp 99.2 F 05/04/20 10:43 Pulse 93 05/04/20 10:46 Resp 20 05/04/20 10:46 BP 127/56 L 05/04/20 10:46 Pulse Ox 95 05/04/20 10:46 Weight - Most Recent: 175 lb 8 oz I&O - Last 24 hours: Intake & Output 05/03/20 05/04/20 05/04/20 22:59 06:59 14:59 Intake Total 120 Balance 120 Lab Results - Last 24 hrs: Laboratory Results - last 24 hr 05/03/20 05/03/20 05/03/20 Range/Units 13:25 13:25 13:25 WBC 5.1 (5.0-10.0) 10^3/uL RBC 4.21 L (4.6-6.2) 10^6/uL Hgb 13.4 L (14.0-18.0) g/dL Hct 39.4 L (40.0-54.0) % MCV 93.6 (80-100) fL MCH 31.8 (27.0-34.0) pg MCHC 34.0 (33.0-35.0) g/dL Plt Count 89 L (150-450) 10^3/uL Add Manual Diff Yes Neutrophils % (Manual) 68 (42-75) % Band Neutrophils % 3 % Lymphocytes % (Manual) 17 L (20-50) % Monocytes % (Manual) 10 H (2-8) % Eosinophils % (Manual) 1 (1-3) % Basophils % (Manual) 1 PT 10.8 (9.0-12.0) SEC INR 1.1 (0.9-1.2) APTT 27.7 (22.0-34.0) SEC Sodium 135 L (136-145) mmol/L Potassium 4.0 (3.5-5.1) mmol/L Chloride 97 L (98-107) mmol/L Carbon Dioxide 29 (21-32) mmol/L Anion Gap 13.0 (7-13) mEq/L BUN 20 H (7-18) mg/dL Creatinine 1.21 (0.70-1.30) mg/dL Est Cr Clr Drug Dosing 50.31 mL/min Estimated GFR (MDRD) 58 BUN/Creatinine Ratio 16.5 (No establ ref range) Glucose 101 H (74-99) mg/dL POC Glucose (83-110) mg/dl Calcium 9.0 (8.5-10.1) mg/dL Phosphorus (2.6-4.7) mg/dL Magnesium 1.7 L (1.8-2.4) mg/dL Ferritin (26-388) mg/mL Total Bilirubin 0.6 (0.2-1.0) mg/dL AST 29 (15-37) U/L ALT 28 (16-63) U/L Alkaline Phosphatase 72 (46-116) U/L Ammonia (11-32) umol/L Lactate Dehydrogenase (85-227) U/L Creatine Kinase (39-308) U/L Troponin I (0.000-0.056) ng/mL B-Natriuretic Peptide 47 (0-100) pg/ml Total Protein 7.8 (6.4-8.2) g/dL Albumin 3.8 (3.4-5.0) g/dL Globulin 4.0 Albumin/Globulin Ratio 0.9 TSH, Ultra Sensitive (0.36-3.74) uIU/mL Urine Color (YELLOW) Urine Appearance (CLEAR) Urine pH (5.0-9.0) Ur Specific [place] (1.005-1.030) Urine Protein (NEGATIVE) Urine Glucose (UA) (NEGATIVE) Urine Ketones (NEGATIVE) Urine Occult Blood (NEGATIVE) Urine Nitrite (NEGATIVE) Urine Bilirubin (NEGATIVE) Urine Urobilinogen (0.2-1.0) mg/dL Ur Leukocyte Esterase (NEGATIVE) Urine RBC /HPF Urine WBC (0-5/HPF) /HPF Ur Epithelial Cells (NOT SEEN) /HPF Urine Mucus (NOT SEEN) /LPF Urine Opiates Screen (NEGATIVE) Ur Oxycodone Screen (NEGATIVE) Urine Methadone Screen (NEGATIVE) Ur Barbiturates Screen (NEGATIVE) U Tricyclic Antidepress (NEGATIVE) Ur Phencyclidine Scrn (NEGATIVE) Ur Amphetamine Screen (NEGATIVE) U Methamphetamines Scrn (NEGATIVE) Urine MDMA Screen (NEGATIVE) U Benzodiazepines Scrn (NEGATIVE) Urine Cocaine Screen (NEGATIVE) U Marijuana (THC) Screen (NEGATIVE) Ethyl Alcohol (0) mg/dL SARS CoV-2 RNA Rapid SKYLAR (NEGATIVE) 05/03/20 05/03/20 05/03/20 Range/Units 13:25 13:25 13:25 WBC (5.0-10.0) 10^3/uL RBC (4.6-6.2) 10^6/uL Hgb (14.0-18.0) g/dL Hct (40.0-54.0) % MCV (80-100) fL MCH (27.0-34.0) pg MCHC (33.0-35.0) g/dL Plt Count (150-450) 10^3/uL Add Manual Diff Neutrophils % (Manual) (42-75) % Band Neutrophils % % Lymphocytes % (Manual) (20-50) % Monocytes % (Manual) (2-8) % Eosinophils % (Manual) (1-3) % Basophils % (Manual) PT (9.0-12.0) SEC INR (0.9-1.2) APTT (22.0-34.0) SEC Sodium (136-145) mmol/L Potassium (3.5-5.1) mmol/L Chloride (98-107) mmol/L Carbon Dioxide (21-32) mmol/L Anion Gap (7-13) mEq/L BUN (7-18) mg/dL Creatinine (0.70-1.30) mg/dL Est Cr Clr Drug Dosing mL/min Estimated GFR (MDRD) BUN/Creatinine Ratio (No establ ref range) Glucose (74-99) mg/dL POC Glucose (83-110) mg/dl Calcium (8.5-10.1) mg/dL Phosphorus 2.8 (2.6-4.7) mg/dL Magnesium (1.8-2.4) mg/dL Ferritin (26-388) mg/mL Total Bilirubin (0.2-1.0) mg/dL AST (15-37) U/L ALT (16-63) U/L Alkaline Phosphatase (46-116) U/L Ammonia (11-32) umol/L Lactate Dehydrogenase (85-227) U/L Creatine Kinase 175 (39-308) U/L Troponin I (0.000-0.056) ng/mL B-Natriuretic Peptide (0-100) pg/ml Total Protein (6.4-8.2) g/dL Albumin (3.4-5.0) g/dL Globulin Albumin/Globulin Ratio TSH, Ultra Sensitive 2.38 (0.36-3.74) uIU/mL Urine Color (YELLOW) Urine Appearance (CLEAR) Urine pH (5.0-9.0) Ur Specific [place] (1.005-1.030) Urine Protein (NEGATIVE) Urine Glucose (UA) (NEGATIVE) Urine Ketones (NEGATIVE) Urine Occult Blood (NEGATIVE) Urine Nitrite (NEGATIVE) Urine Bilirubin (NEGATIVE) Urine Urobilinogen (0.2-1.0) mg/dL Ur Leukocyte Esterase (NEGATIVE) Urine RBC /HPF Urine WBC (0-5/HPF) /HPF Ur Epithelial Cells (NOT SEEN) /HPF Urine Mucus (NOT SEEN) /LPF Urine Opiates Screen (NEGATIVE) Ur Oxycodone Screen (NEGATIVE) Urine Methadone Screen (NEGATIVE) Ur Barbiturates Screen (NEGATIVE) U Tricyclic Antidepress (NEGATIVE) Ur Phencyclidine Scrn (NEGATIVE) Ur Amphetamine Screen (NEGATIVE) U Methamphetamines Scrn (NEGATIVE) Urine MDMA Screen (NEGATIVE) U Benzodiazepines Scrn (NEGATIVE) Urine Cocaine Screen (NEGATIVE) U Marijuana (THC) Screen (NEGATIVE) Ethyl Alcohol < 3 (0) mg/dL SARS CoV-2 RNA Rapid SKYLAR (NEGATIVE) 05/03/20 05/03/20 05/03/20 Range/Units 14:40 14:40 14:46 WBC (5.0-10.0) 10^3/uL RBC (4.6-6.2) 10^6/uL Hgb (14.0-18.0) g/dL Hct (40.0-54.0) % MCV (80-100) fL MCH (27.0-34.0) pg MCHC (33.0-35.0) g/dL Plt Count (150-450) 10^3/uL Add Manual Diff Neutrophils % (Manual) (42-75) % Band Neutrophils % % Lymphocytes % (Manual) (20-50) % Monocytes % (Manual) (2-8) % Eosinophils % (Manual) (1-3) % Basophils % (Manual) PT (9.0-12.0) SEC INR (0.9-1.2) APTT (22.0-34.0) SEC Sodium (136-145) mmol/L Potassium (3.5-5.1) mmol/L Chloride (98-107) mmol/L Carbon Dioxide (21-32) mmol/L Anion Gap (7-13) mEq/L BUN (7-18) mg/dL Creatinine (0.70-1.30) mg/dL Est Cr Clr Drug Dosing mL/min Estimated GFR (MDRD) BUN/Creatinine Ratio (No establ ref range) Glucose (74-99) mg/dL POC Glucose (83-110) mg/dl Calcium (8.5-10.1) mg/dL Phosphorus (2.6-4.7) mg/dL Magnesium (1.8-2.4) mg/dL Ferritin (26-388) mg/mL Total Bilirubin (0.2-1.0) mg/dL AST (15-37) U/L ALT (16-63) U/L Alkaline Phosphatase (46-116) U/L Ammonia 51 H (11-32) umol/L Lactate Dehydrogenase (85-227) U/L Creatine Kinase (39-308) U/L Troponin I (0.000-0.056) ng/mL B-Natriuretic Peptide (0-100) pg/ml Total Protein (6.4-8.2) g/dL Albumin (3.4-5.0) g/dL Globulin Albumin/Globulin Ratio TSH, Ultra Sensitive (0.36-3.74) uIU/mL Urine Color Yellow (YELLOW) Urine Appearance Clear (CLEAR) Urine pH 6.0 (5.0-9.0) Ur Specific [place] 1.025 (1.005-1.030) Urine Protein 30 H (NEGATIVE) Urine Glucose (UA) Negative (NEGATIVE) Urine Ketones Negative (NEGATIVE) Urine Occult Blood Small H (NEGATIVE) Urine Nitrite Negative (NEGATIVE) Urine Bilirubin Negative (NEGATIVE) Urine Urobilinogen 0.2 (0.2-1.0) mg/dL Ur Leukocyte Esterase Negative (NEGATIVE) Urine RBC 0-5 /HPF Urine WBC 0-5 (0-5/HPF) /HPF Ur Epithelial Cells Few (NOT SEEN) /HPF Urine Mucus Few H (NOT SEEN) /LPF Urine Opiates Screen Negative (NEGATIVE) Ur Oxycodone Screen Negative (NEGATIVE) Urine Methadone Screen Negative (NEGATIVE) Ur Barbiturates Screen Negative (NEGATIVE) U Tricyclic Antidepress Negative (NEGATIVE) Ur Phencyclidine Scrn Negative (NEGATIVE) Ur Amphetamine Screen Negative (NEGATIVE) U Methamphetamines Scrn Negative (NEGATIVE) Urine MDMA Screen Negative (NEGATIVE) U Benzodiazepines Scrn Negative (NEGATIVE) Urine Cocaine Screen Negative (NEGATIVE) U Marijuana (THC) Screen Negative (NEGATIVE) Ethyl Alcohol (0) mg/dL SARS CoV-2 RNA Rapid SKYLAR (NEGATIVE) 05/03/20 05/03/20 05/03/20 Range/Units 15:50 17:05 20:56 WBC (5.0-10.0) 10^3/uL RBC (4.6-6.2) 10^6/uL Hgb (14.0-18.0) g/dL Hct (40.0-54.0) % MCV (80-100) fL MCH (27.0-34.0) pg MCHC (33.0-35.0) g/dL Plt Count (150-450) 10^3/uL Add Manual Diff Neutrophils % (Manual) (42-75) % Band Neutrophils % % Lymphocytes % (Manual) (20-50) % Monocytes % (Manual) (2-8) % Eosinophils % (Manual) (1-3) % Basophils % (Manual) PT (9.0-12.0) SEC INR (0.9-1.2) APTT (22.0-34.0) SEC Sodium (136-145) mmol/L Potassium (3.5-5.1) mmol/L Chloride (98-107) mmol/L Carbon Dioxide (21-32) mmol/L Anion Gap (7-13) mEq/L BUN (7-18) mg/dL Creatinine (0.70-1.30) mg/dL Est Cr Clr Drug Dosing mL/min Estimated GFR (MDRD) BUN/Creatinine Ratio (No establ ref range) Glucose (74-99) mg/dL POC Glucose 97 102 (83-110) mg/dl Calcium (8.5-10.1) mg/dL Phosphorus (2.6-4.7) mg/dL Magnesium (1.8-2.4) mg/dL Ferritin (26-388) mg/mL Total Bilirubin (0.2-1.0) mg/dL AST (15-37) U/L ALT (16-63) U/L Alkaline Phosphatase (46-116) U/L Ammonia (11-32) umol/L Lactate Dehydrogenase (85-227) U/L Creatine Kinase (39-308) U/L Troponin I (0.000-0.056) ng/mL B-Natriuretic Peptide (0-100) pg/ml Total Protein (6.4-8.2) g/dL Albumin (3.4-5.0) g/dL Globulin Albumin/Globulin Ratio TSH, Ultra Sensitive (0.36-3.74) uIU/mL Urine Color (YELLOW) Urine Appearance (CLEAR) Urine pH (5.0-9.0) Ur Specific [place] (1.005-1.030) Urine Protein (NEGATIVE) Urine Glucose (UA) (NEGATIVE) Urine Ketones (NEGATIVE) Urine Occult Blood (NEGATIVE) Urine Nitrite (NEGATIVE) Urine Bilirubin (NEGATIVE) Urine Urobilinogen (0.2-1.0) mg/dL Ur Leukocyte Esterase (NEGATIVE) Urine RBC /HPF Urine WBC (0-5/HPF) /HPF Ur Epithelial Cells (NOT SEEN) /HPF Urine Mucus (NOT SEEN) /LPF Urine Opiates Screen (NEGATIVE) Ur Oxycodone Screen (NEGATIVE) Urine Methadone Screen (NEGATIVE) Ur Barbiturates Screen (NEGATIVE) U Tricyclic Antidepress (NEGATIVE) Ur Phencyclidine Scrn (NEGATIVE) Ur Amphetamine Screen (NEGATIVE) U Methamphetamines Scrn (NEGATIVE) Urine MDMA Screen (NEGATIVE) U Benzodiazepines Scrn (NEGATIVE) Urine Cocaine Screen (NEGATIVE) U Marijuana (THC) Screen (NEGATIVE) Ethyl Alcohol (0) mg/dL SARS CoV-2 RNA Rapid SKYLAR Positive H (NEGATIVE) 05/04/20 05/04/20 05/04/20 Range/Units 05:40 05:40 05:40 WBC 3.6 L (5.0-10.0) 10^3/uL RBC 3.81 L (4.6-6.2) 10^6/uL Hgb 12.1 L (14.0-18.0) g/dL Hct 36.0 L (40.0-54.0) % MCV 94.5 (80-100) fL MCH 31.8 (27.0-34.0) pg MCHC 33.6 (33.0-35.0) g/dL Plt Count 81 L (150-450) 10^3/uL Add Manual Diff Neutrophils % (Manual) (42-75) % Band Neutrophils % % Lymphocytes % (Manual) (20-50) % Monocytes % (Manual) (2-8) % Eosinophils % (Manual) (1-3) % Basophils % (Manual) PT 11.0 (9.0-12.0) SEC INR 1.2 (0.9-1.2) APTT 28.9 (22.0-34.0) SEC Sodium 136 (136-145) mmol/L Potassium 4.0 (3.5-5.1) mmol/L Chloride 98 (98-107) mmol/L Carbon Dioxide 28 (21-32) mmol/L Anion Gap 14.0 H (7-13) mEq/L BUN 19 H (7-18) mg/dL Creatinine 1.07 (0.70-1.30) mg/dL Est Cr Clr Drug Dosing 56.90 mL/min Estimated GFR (MDRD) > 60 BUN/Creatinine Ratio 17.8 (No establ ref range) Glucose 94 (74-99) mg/dL POC Glucose (83-110) mg/dl Calcium 8.4 L (8.5-10.1) mg/dL Phosphorus (2.6-4.7) mg/dL Magnesium (1.8-2.4) mg/dL Ferritin (26-388) mg/mL Total Bilirubin 0.6 (0.2-1.0) mg/dL AST 27 (15-37) U/L ALT 25 (16-63) U/L Alkaline Phosphatase 57 (46-116) U/L Ammonia (11-32) umol/L Lactate Dehydrogenase 231 H (85-227) U/L Creatine Kinase (39-308) U/L Troponin I 0.019 (0.000-0.056) ng/mL B-Natriuretic Peptide (0-100) pg/ml Total Protein 6.2 L (6.4-8.2) g/dL Albumin 3.2 L (3.4-5.0) g/dL Globulin 3.0 Albumin/Globulin Ratio 1.07 TSH, Ultra Sensitive (0.36-3.74) uIU/mL Urine Color (YELLOW) Urine Appearance (CLEAR) Urine pH (5.0-9.0) Ur Specific [place] (1.005-1.030) Urine Protein (NEGATIVE) Urine Glucose (UA) (NEGATIVE) Urine Ketones (NEGATIVE) Urine Occult Blood (NEGATIVE) Urine Nitrite (NEGATIVE) Urine Bilirubin (NEGATIVE) Urine Urobilinogen (0.2-1.0) mg/dL Ur Leukocyte Esterase (NEGATIVE) Urine RBC /HPF Urine WBC (0-5/HPF) /HPF Ur Epithelial Cells (NOT SEEN) /HPF Urine Mucus (NOT SEEN) /LPF Urine Opiates Screen (NEGATIVE) Ur Oxycodone Screen (NEGATIVE) Urine Methadone Screen (NEGATIVE) Ur Barbiturates Screen (NEGATIVE) U Tricyclic Antidepress (NEGATIVE) Ur Phencyclidine Scrn (NEGATIVE) Ur Amphetamine Screen (NEGATIVE) U Methamphetamines Scrn (NEGATIVE) Urine MDMA Screen (NEGATIVE) U Benzodiazepines Scrn (NEGATIVE) Urine Cocaine Screen (NEGATIVE) U Marijuana (THC) Screen (NEGATIVE) Ethyl Alcohol (0) mg/dL SARS CoV-2 RNA Rapid SKYLAR (NEGATIVE) 05/04/20 05/04/20 Range/Units 05:40 08:19 WBC (5.0-10.0) 10^3/uL RBC (4.6-6.2) 10^6/uL Hgb (14.0-18.0) g/dL Hct (40.0-54.0) % MCV (80-100) fL MCH (27.0-34.0) pg MCHC (33.0-35.0) g/dL Plt Count (150-450) 10^3/uL Add Manual Diff Neutrophils % (Manual) (42-75) % Band Neutrophils % % Lymphocytes % (Manual) (20-50) % Monocytes % (Manual) (2-8) % Eosinophils % (Manual) (1-3) % Basophils % (Manual) PT (9.0-12.0) SEC INR (0.9-1.2) APTT (22.0-34.0) SEC Sodium (136-145) mmol/L Potassium (3.5-5.1) mmol/L Chloride (98-107) mmol/L Carbon Dioxide (21-32) mmol/L Anion Gap (7-13) mEq/L BUN (7-18) mg/dL Creatinine (0.70-1.30) mg/dL Est Cr Clr Drug Dosing mL/min Estimated GFR (MDRD) BUN/Creatinine Ratio (No establ ref range) Glucose (74-99) mg/dL POC Glucose 93 (83-110) mg/dl Calcium (8.5-10.1) mg/dL Phosphorus (2.6-4.7) mg/dL Magnesium (1.8-2.4) mg/dL Ferritin 562 H (26-388) mg/mL Total Bilirubin (0.2-1.0) mg/dL AST (15-37) U/L ALT (16-63) U/L Alkaline Phosphatase (46-116) U/L Ammonia (11-32) umol/L Lactate Dehydrogenase (85-227) U/L Creatine Kinase (39-308) U/L Troponin I (0.000-0.056) ng/mL B-Natriuretic Peptide (0-100) pg/ml Total Protein (6.4-8.2) g/dL Albumin (3.4-5.0) g/dL Globulin Albumin/Globulin Ratio TSH, Ultra Sensitive (0.36-3.74) uIU/mL Urine Color (YELLOW) Urine Appearance (CLEAR) Urine pH (5.0-9.0) Ur Specific [place] (1.005-1.030) Urine Protein (NEGATIVE) Urine Glucose (UA) (NEGATIVE) Urine Ketones (NEGATIVE) Urine Occult Blood (NEGATIVE) Urine Nitrite (NEGATIVE) Urine Bilirubin (NEGATIVE) Urine Urobilinogen (0.2-1.0) mg/dL Ur Leukocyte Esterase (NEGATIVE) Urine RBC /HPF Urine WBC (0-5/HPF) /HPF Ur Epithelial Cells (NOT SEEN) /HPF Urine Mucus (NOT SEEN) /LPF Urine Opiates Screen (NEGATIVE) Ur Oxycodone Screen (NEGATIVE) Urine Methadone Screen (NEGATIVE) Ur Barbiturates Screen (NEGATIVE) U Tricyclic Antidepress (NEGATIVE) Ur Phencyclidine Scrn (NEGATIVE) Ur Amphetamine Screen (NEGATIVE) U Methamphetamines Scrn (NEGATIVE) Urine MDMA Screen (NEGATIVE) U Benzodiazepines Scrn (NEGATIVE) Urine Cocaine Screen (NEGATIVE) U Marijuana (THC) Screen (NEGATIVE) Ethyl Alcohol (0) mg/dL SARS CoV-2 RNA Rapid SKYLAR (NEGATIVE) Med Orders - Current: Current Medications Acetaminophen (Tylenol) 650 mg PO Q4H PRN PRN Reason: Pain (Mild 1-3)/fever Last Admin: 05/03/20 16:59 Dose: 650 mg Documented by: Aspirin (Halfprin) 81 mg PO DAILY [facility] Last Admin: 05/04/20 08:27 Dose: 81 mg Documented by: Docusate Sodium (Colace) 100 mg PO BID PRN PRN Reason: Constipation Levothyroxine Sodium (Synthroid) 50 mcg PO ACBRK [facility] Last Admin: 05/04/20 06:12 Dose: 50 mcg Documented by: Lisinopril (Prinivil) 30 mg PO BID [facility] Last Admin: 05/04/20 08:26 Dose: 30 mg Documented by: Magnesium Hydroxide (Milk Of Magnesia) 30 ml PO Q12H PRN PRN Reason: Constipation Metformin HCl (Glucophage) 500 mg PO DAILY [facility] Last Admin: 05/04/20 08:27 Dose: 500 mg Documented by: Omeprazole (Omeprazole) 20 mg PO ACBREAKFAST [facility] Last Admin: 05/04/20 06:12 Dose: 20 mg Documented by: Ondansetron HCl (Zofran) 4 mg IVPUSH Q6H PRN PRN Reason: Nausea/Vomiting Psyllium Hydrophilic Mucilloid (Metamucil) 0.52 gm PO DAILY [facility] Last Admin: 05/04/20 08:26 Dose: 0.52 gm Documented by: Simvastatin (Zocor) 40 mg PO BEDTIME [facility] Last Admin: 05/03/20 20:51 Dose: 40 mg Documented by: Discontinued Medications Heparin Sodium (Porcine) (Heparin Sodium) 5,000 units SUBCUT Q12HR MANN - Exam General: Reports: Alert, Oriented HEENT: Reports: Pupils Equal, Pupils Reactive, EOMI, Mucous Membr. Moist/[place] Neck: Reports: Supple Lungs: Reports: Clear to Auscultation, Normal Respiratory Effort Cardiovascular: Reports: Regular Rate, Regular Rhythm GI/Abdominal Exam: Normal Bowel Sounds, Soft, Non-Tender, No Organomegaly, No Distention, No Abnormal Bruit, No Mass, Pelvis Stable (Male) Exam: No Hernia, Normal Inspection, Normal Prostate, Circumcised Rectal (Males) Exam: Normal Exam, Normal Rectal Tone, Prostate Normal Back Exam: Reports: Normal Inspection, Full Range of Motion Extremities: Normal Inspection, Normal Range of Motion, Non-Tender, No Pedal Edema, Normal Capillary Refill Skin: Reports: Warm, Dry, Intact Wound/Incisions: Reports: Healing Well Neurological: Reports: No New Focal Deficit Psy/Mental Status: Reports: Alert, Normal Affect, Normal Mood
== END 2020-05-04 12:05 | disposition home or self-care (01) ==
LOC: DL.ED 12:34 → DL.MS 15:35
PROVIDERS: ADMIT Student in an Organized Health Care Education/Training Program; ATTEND Student in an Organized Health Care Education/Training Program
DX: G93.40 Encephalopathy, unspecified (principal); U07.1 COVID-19; E03.9 Hypothyroidism, unspecified; I10 Essential (primary) hypertension; E78.00 Pure hypercholesterolemia, unspecified; E11.9 Type 2 diabetes mellitus without complications; Z79.890 Hormone replacement therapy; Z79.82 Long term (current) use of aspirin; Z79.899 Other long term (current) drug therapy; Z90.49 Acquired absence of other specified parts of digestive tract; Z79.84 Long term (current) use of oral hypoglycemic drugs
CPT/HCPCS: 36415; 70450; 80053; 80305; 80307; 81001; 82140; 82550; 82728; 82962; 83615; 83735; 83880; 84100; 84443; 84484; 85025; 85027; 85610; 85730; 99284; A9270; G0378; U0002

== ENCOUNTER 2021-07-21 12:10 | Emergency (ER) | payer MEDICARE, BC ==
[2021-07-21] MEDS ORDERED: HYDROmorphone 1 MG/ML Syringe IVPUSH ONE (12:25)
[2021-07-21] MEDS ORDERED: HYDROmorphone 1 MG/ML Syringe ONE (12:27)
[2021-07-21] MEDS ORDERED: Labetalol 20 MG/4 ML Syringe IVPUSH ONE (13:12)
[2021-07-21 13:38] LABS: PTT,PARTIAL THROMBOPLSTIN TIME 23.7 SEC (22.0-34.0)
[2021-07-21 13:41] LABS: ANION GAP 16.6 mEq/L (7-13); CHLORIDE,CL 103 mmol/L (98-107); SODIUM,NA 141 mmol/L (136-145)
== END 2021-07-21 13:57 ==
LOC: DL.ED 12:10
DX: S06.5X0A Traumatic subdural hemorrhage without loss of consciousness, initial encounter (principal); S43.004A Unspecified dislocation of right shoulder joint, initial encounter; S40.021A Contusion of right upper arm, initial encounter; S00.11XA Contusion of right eyelid and periocular area, initial encounter; E78.00 Pure hypercholesterolemia, unspecified; I10 Essential (primary) hypertension; E11.9 Type 2 diabetes mellitus without complications; K21.9 Gastro-esophageal reflux disease without esophagitis; Z79.82 Long term (current) use of aspirin; Z79.899 Other long term (current) drug therapy; Z79.84 Long term (current) use of oral hypoglycemic drugs; W18.30XA Fall on same level, unspecified, initial encounter
CPT/HCPCS: 36415; 70450; 70486; 72125; 73020; 80053; 84484; 85025; 85610; 85730; 96374; 99285; J1170

== ENCOUNTER 2021-07-28 10:02 | Inpatient (IN) | payer MEDICARE, BC ==
[2021-07-28] MEDS ORDERED: Melatonin 3 MG Tab PO PRN (14:32)
[2021-07-28] MEDS ORDERED: 50% Dextrose in Water 50 ML Syringe IVPUSH PRN (14:34)
[2021-07-28] MEDS ORDERED: Polyethylene Glycol 3350 Powder 17 GM Packet PO PRN (14:35)
[2021-07-28] MEDS ORDERED: Ondansetron 4 MG Tab.DIS PO PRN (14:35)
[2021-07-28] MEDS ORDERED: Acetaminophen/oxyCODONE 325-5 MG Tab PO PRN (14:35)
[2021-07-28] MEDS: Omeprazole 20 MG Cap.CR PO SCH (16:30)
[2021-07-28] MEDS: Insulin Lispro 100 Units/ML 3 ML Vial SUBCUT SCH ×2 (17:00→20:50)
[2021-07-28] MEDS: Heparin Sodium 5,000 Units/ML Vial SUBCUT SCH ×2 (20:49→22:18)
[2021-07-28] MEDS: Simvastatin 40 MG Tab PO SCH (20:49)
[2021-07-29] MEDS: Acetaminophen 325 MG Tab PO PRN ×3 (02:11→21:37)
[2021-07-29] MEDS: Omeprazole 20 MG Cap.CR PO SCH ×2 (06:31→16:13)
[2021-07-29] MEDS: Levothyroxine 75 MCG Tab PO SCH (06:32)
[2021-07-29] MEDS: Heparin Sodium 5,000 Units/ML Vial SUBCUT SCH ×3 (06:32→21:43)
[2021-07-29] MEDS: Insulin Lispro 100 Units/ML 3 ML Vial SUBCUT SCH ×4 (08:04→21:40)
[2021-07-29] MEDS: Sertraline 50 MG Tab PO SCH (08:24)
[2021-07-29] MEDS: metFORMIN 500 MG Tab PO SCH (08:24)
[2021-07-29] MEDS: Metoprolol Succinate 50 MG Tab.ER PO SCH (08:24)
[2021-07-29] MEDS: Lisinopril 5 MG Tab PO SCH (08:25)
[2021-07-29] MEDS: Simvastatin 40 MG Tab PO SCH (21:35)
[2021-07-29] MEDS: Melatonin 3 MG Tab PO PRN (21:35)
[2021-07-30] MEDS: Heparin Sodium 5,000 Units/ML Vial SUBCUT SCH (06:46)
[2021-07-30] MEDS: Omeprazole 20 MG Cap.CR PO SCH ×2 (06:47→16:21)
[2021-07-30] MEDS: Levothyroxine 75 MCG Tab PO SCH (06:47)
[2021-07-30] MEDS: Acetaminophen 325 MG Tab PO PRN ×2 (08:19→21:05)
[2021-07-30] MEDS: Sertraline 50 MG Tab PO SCH (09:13)
[2021-07-30] MEDS: metFORMIN 500 MG Tab PO SCH (09:14)
[2021-07-30] MEDS: Metoprolol Succinate 50 MG Tab.ER PO SCH (09:14)
[2021-07-30] MEDS: Lisinopril 5 MG Tab PO SCH (09:16)
[2021-07-30] MEDS: Insulin Lispro 100 Units/ML 3 ML Vial SUBCUT SCH ×4 (10:14→21:35)
[2021-07-30] MEDS: SAW PALMETTO FRUIT 450 MG PO SCH (16:56)
[2021-07-30] MEDS: Simvastatin 40 MG Tab PO SCH (21:04)
[2021-07-30] MEDS: Melatonin 3 MG Tab PO PRN (21:05)
[2021-07-31] MEDS: Acetaminophen 325 MG Tab PO PRN (02:59)
[2021-07-31] MEDS: Levothyroxine 75 MCG Tab PO SCH (05:54)
[2021-07-31] MEDS: Omeprazole 20 MG Cap.CR PO SCH ×2 (05:55→15:45)
[2021-07-31] MEDS: metFORMIN 500 MG Tab PO SCH (08:39)
[2021-07-31] MEDS: Sertraline 50 MG Tab PO SCH (08:40)
[2021-07-31] MEDS: Lisinopril 5 MG Tab PO SCH (08:40)
[2021-07-31] MEDS: Metoprolol Succinate 50 MG Tab.ER PO SCH (08:40)
[2021-07-31] MEDS: Insulin Lispro 100 Units/ML 3 ML Vial SUBCUT SCH ×4 (08:41→21:43)
[2021-07-31] MEDS: Simvastatin 40 MG Tab PO SCH (21:38)
[2021-07-31] MEDS: Melatonin 3 MG Tab PO PRN (21:38)
[2021-08-01] MEDS: Omeprazole 20 MG Cap.CR PO SCH ×2 (05:37→16:14)
[2021-08-01] MEDS: Levothyroxine 75 MCG Tab PO SCH (05:37)
[2021-08-01] MEDS: Insulin Lispro 100 Units/ML 3 ML Vial SUBCUT SCH ×4 (08:48→20:57)
[2021-08-01] MEDS: Lisinopril 5 MG Tab PO SCH (09:18)
[2021-08-01] MEDS: Acetaminophen 325 MG Tab PO PRN ×2 (09:19→20:55)
[2021-08-01] MEDS: metFORMIN 500 MG Tab PO SCH (09:19)
[2021-08-01] MEDS: Metoprolol Succinate 50 MG Tab.ER PO SCH (09:20)
[2021-08-01] MEDS: Sertraline 50 MG Tab PO SCH (09:21)
[2021-08-01] MEDS: SAW PALMETTO FRUIT 450 MG PO SCH ×2 (12:47→16:14)
[2021-08-01] MEDS: Simvastatin 40 MG Tab PO SCH (20:55)
[2021-08-02] MEDS: Omeprazole 20 MG Cap.CR PO SCH ×2 (07:41→17:47)
[2021-08-02] MEDS: Levothyroxine 75 MCG Tab PO SCH (07:41)
[2021-08-02] MEDS: Sertraline 50 MG Tab PO SCH (08:41)
[2021-08-02] MEDS: Insulin Lispro 100 Units/ML 3 ML Vial SUBCUT SCH ×2 (08:41→14:53)
[2021-08-02] MEDS: Metoprolol Succinate 50 MG Tab.ER PO SCH (08:42)
[2021-08-02] MEDS: metFORMIN 500 MG Tab PO SCH (08:42)
[2021-08-02] MEDS: Lisinopril 5 MG Tab PO SCH (08:43)
[2021-08-02] MEDS: Simvastatin 40 MG Tab PO SCH (21:27)
[2021-08-02] MEDS: Melatonin 3 MG Tab PO PRN (21:28)
[2021-08-03] MEDS: Omeprazole 20 MG Cap.CR PO SCH ×2 (05:25→15:42)
[2021-08-03] MEDS: Levothyroxine 75 MCG Tab PO SCH (05:25)
[2021-08-03 06:29] LABS: ANION GAP 12.7 mEq/L (7-13); CHLORIDE,CL 102 mmol/L (98-107); SODIUM,NA 138 mmol/L (136-145)
[2021-08-03] MEDS: Sertraline 50 MG Tab PO SCH (08:29)
[2021-08-03] MEDS: Lisinopril 5 MG Tab PO SCH (08:29)
[2021-08-03] MEDS: Metoprolol Succinate 50 MG Tab.ER PO SCH (08:29)
[2021-08-03] MEDS: metFORMIN 500 MG Tab PO SCH (08:30)
[2021-08-03] MEDS: Simvastatin 40 MG Tab PO SCH (21:18)
[2021-08-03] MEDS: Melatonin 3 MG Tab PO PRN (21:19)
[2021-08-04] MEDS: Levothyroxine 75 MCG Tab PO SCH (06:45)
[2021-08-04] MEDS: Omeprazole 20 MG Cap.CR PO SCH ×2 (06:45→16:23)
[2021-08-04] MEDS: Lisinopril 5 MG Tab PO SCH (08:18)
[2021-08-04] MEDS: metFORMIN 500 MG Tab PO SCH (08:18)
[2021-08-04] MEDS: Sertraline 50 MG Tab PO SCH (08:18)
[2021-08-04] MEDS: Metoprolol Succinate 50 MG Tab.ER PO SCH (08:18)
[2021-08-04] MEDS: Simvastatin 40 MG Tab PO SCH (21:23)
[2021-08-04] MEDS: Melatonin 3 MG Tab PO PRN (21:24)
[2021-08-04] MEDS: Acetaminophen 325 MG Tab PO PRN (21:24)
[2021-08-05] MEDS: Omeprazole 20 MG Cap.CR PO SCH ×2 (06:06→16:48)
[2021-08-05] MEDS: Levothyroxine 75 MCG Tab PO SCH (06:06)
[2021-08-05] MEDS: Lisinopril 5 MG Tab PO SCH (09:23)
[2021-08-05] MEDS: metFORMIN 500 MG Tab PO SCH (09:23)
[2021-08-05] MEDS: Sertraline 50 MG Tab PO SCH (09:24)
[2021-08-05] MEDS: Metoprolol Succinate 50 MG Tab.ER PO SCH (09:24)
[2021-08-05 11:56] LABS: ANION GAP 12.4 mEq/L (7-13); CHLORIDE,CL 102 mmol/L (98-107); SODIUM,NA 139 mmol/L (136-145)
[2021-08-05] MEDS: Acetaminophen 325 MG Tab PO PRN ×2 (16:49→21:23)
[2021-08-05] MEDS: Simvastatin 40 MG Tab PO SCH (20:37)
[2021-08-05] MEDS: Melatonin 3 MG Tab PO PRN (21:24)
[2021-08-06] MEDS: Omeprazole 20 MG Cap.CR PO SCH ×2 (05:22→16:37)
[2021-08-06] MEDS: Levothyroxine 75 MCG Tab PO SCH (05:23)
[2021-08-06] MEDS: Sertraline 50 MG Tab PO SCH (09:18)
[2021-08-06] MEDS: Lisinopril 5 MG Tab PO SCH (09:18)
[2021-08-06] MEDS: metFORMIN 500 MG Tab PO SCH (09:18)
[2021-08-06] MEDS: Metoprolol Succinate 50 MG Tab.ER PO SCH (09:18)
[2021-08-06] MEDS: Acetaminophen 325 MG Tab PO PRN (20:57)
[2021-08-06] MEDS: Simvastatin 40 MG Tab PO SCH (20:57)
[2021-08-06] MEDS: Melatonin 3 MG Tab PO PRN (20:57)
[2021-08-07] MEDS: Omeprazole 20 MG Cap.CR PO SCH ×2 (05:32→16:14)
[2021-08-07] MEDS: Levothyroxine 75 MCG Tab PO SCH (05:32)
[2021-08-07] MEDS: Metoprolol Succinate 50 MG Tab.ER PO SCH (08:31)
[2021-08-07] MEDS: Sertraline 50 MG Tab PO SCH (08:32)
[2021-08-07] MEDS: Lisinopril 5 MG Tab PO SCH (08:32)
[2021-08-07] MEDS: metFORMIN 500 MG Tab PO SCH (08:33)
[2021-08-07] MEDS ORDERED: Magnesium Hydroxide 400 MG/5 ML Susp 30 ML Cup PO PRN (10:22)
[2021-08-07] MEDS: Acetaminophen 325 MG Tab PO PRN (19:35)
[2021-08-07] MEDS: Simvastatin 40 MG Tab PO SCH (21:06)
[2021-08-08] MEDS: Levothyroxine 75 MCG Tab PO SCH (07:02)
[2021-08-08] MEDS: Omeprazole 20 MG Cap.CR PO SCH ×2 (07:02→15:21)
[2021-08-08] MEDS: Metoprolol Succinate 50 MG Tab.ER PO SCH (10:31)
[2021-08-08] MEDS: Sertraline 50 MG Tab PO SCH (10:31)
[2021-08-08] MEDS: metFORMIN 500 MG Tab PO SCH (10:31)
[2021-08-08] MEDS: Lisinopril 5 MG Tab PO SCH (10:34)
[2021-08-08] MEDS: Simvastatin 40 MG Tab PO SCH (20:06)
[2021-08-08] MEDS: Melatonin 3 MG Tab PO PRN (20:06)
[2021-08-08] MEDS: Acetaminophen 325 MG Tab PO PRN (20:06)
[2021-08-09] MEDS: Levothyroxine 75 MCG Tab PO SCH (06:15)
[2021-08-09] MEDS: Omeprazole 20 MG Cap.CR PO SCH ×2 (06:15→17:43)
[2021-08-09] MEDS: Acetaminophen 325 MG Tab PO PRN ×2 (06:56→20:30)
[2021-08-09] MEDS: Sertraline 50 MG Tab PO SCH (08:30)
[2021-08-09] MEDS: metFORMIN 500 MG Tab PO SCH (08:30)
[2021-08-09] MEDS: Lisinopril 5 MG Tab PO SCH (08:31)
[2021-08-09] MEDS: Metoprolol Succinate 50 MG Tab.ER PO SCH (08:31)
[2021-08-09] MEDS: Melatonin 3 MG Tab PO PRN (20:30)
[2021-08-09] MEDS: Simvastatin 40 MG Tab PO SCH (20:30)
[2021-08-10] MEDS: Levothyroxine 75 MCG Tab PO SCH (05:57)
[2021-08-10] MEDS: Acetaminophen 325 MG Tab PO PRN ×2 (05:57→20:51)
[2021-08-10] MEDS: Omeprazole 20 MG Cap.CR PO SCH ×2 (05:57→15:26)
[2021-08-10] MEDS: metFORMIN 500 MG Tab PO SCH (08:16)
[2021-08-10] MEDS: Sertraline 50 MG Tab PO SCH (08:17)
[2021-08-10] MEDS: Lisinopril 5 MG Tab PO SCH (08:17)
[2021-08-10] MEDS: Metoprolol Succinate 50 MG Tab.ER PO SCH (08:17)
[2021-08-10] MEDS: Simvastatin 40 MG Tab PO SCH (20:51)
[2021-08-10] MEDS: Melatonin 3 MG Tab PO PRN (20:51)
[2021-08-11] MEDS: Levothyroxine 75 MCG Tab PO SCH (06:03)
[2021-08-11] MEDS: Omeprazole 20 MG Cap.CR PO SCH ×2 (06:03→16:29)
[2021-08-11] MEDS: Sertraline 50 MG Tab PO SCH (08:31)
[2021-08-11] MEDS: Metoprolol Succinate 50 MG Tab.ER PO SCH (08:31)
[2021-08-11] MEDS: Lisinopril 5 MG Tab PO SCH (08:32)
[2021-08-11] MEDS: metFORMIN 500 MG Tab PO SCH (08:32)
[2021-08-11] MEDS: Simvastatin 40 MG Tab PO SCH (20:30)
[2021-08-11] MEDS: Melatonin 3 MG Tab PO PRN (23:11)
[2021-08-12] MEDS: Omeprazole 20 MG Cap.CR PO SCH ×2 (06:06→16:38)
[2021-08-12] MEDS: Levothyroxine 75 MCG Tab PO SCH (06:06)
[2021-08-12] MEDS: metFORMIN 500 MG Tab PO SCH (09:26)
[2021-08-12] MEDS: Lisinopril 5 MG Tab PO SCH (09:26)
[2021-08-12] MEDS: Sertraline 50 MG Tab PO SCH (09:26)
[2021-08-12] MEDS: Metoprolol Succinate 50 MG Tab.ER PO SCH (09:26)
[2021-08-12] MEDS: Melatonin 3 MG Tab PO PRN (20:43)
[2021-08-12] MEDS: Simvastatin 40 MG Tab PO SCH (20:43)
[2021-08-13] MEDS: Omeprazole 20 MG Cap.CR PO SCH (05:44)
[2021-08-13] MEDS: Levothyroxine 75 MCG Tab PO SCH (05:44)
[2021-08-13] MEDS: metFORMIN 500 MG Tab PO SCH (08:23)
[2021-08-13] MEDS: Lisinopril 5 MG Tab PO SCH (08:23)
[2021-08-13] MEDS: Metoprolol Succinate 50 MG Tab.ER PO SCH (08:24)
[2021-08-13] MEDS: Sertraline 50 MG Tab PO SCH (08:24)
[2021-08-13 08:25] VITALS: BP 118/64; PULSE 75
== END 2021-08-13 10:20 | disposition home or self-care (01) | DRG 948 ==
LOC: DL.MS 13:43 → UNDOADMIN 13:43 → DL.MS 14:35
PROVIDERS: ADMIT Internal Medicine; ATTEND Internal Medicine
DX: R53.81 Other malaise (principal); G93.40 Encephalopathy, unspecified; I47.1 Supraventricular tachycardia; S02.401D Maxillary fracture, unspecified side, subsequent encounter for fracture with routine healing; S00.11XD Contusion of right eyelid and periocular area, subsequent encounter; S43.004D Unspecified dislocation of right shoulder joint, subsequent encounter; S06.6X9D Traumatic subarachnoid hemorrhage with loss of consciousness of unspecified duration, subsequent encounter; H54.7 Unspecified visual loss; I10 Essential (primary) hypertension; Z66 Do not resuscitate; E78.5 Hyperlipidemia, unspecified; E03.9 Hypothyroidism, unspecified; K21.9 Gastro-esophageal reflux disease without esophagitis; K57.90 Diverticulosis of intestine, part unspecified, without perforation or abscess without bleeding; F32.A Depression, unspecified; K64.9 Unspecified hemorrhoids; H91.90 Unspecified hearing loss, unspecified ear; M19.90 Unspecified osteoarthritis, unspecified site; E11.9 Type 2 diabetes mellitus without complications; E78.00 Pure hypercholesterolemia, unspecified; R26.81 Unsteadiness on feet; I49.3 Ventricular premature depolarization; G47.00 Insomnia, unspecified; Z98.890 Other specified postprocedural states
CPT/HCPCS: 36415; 70450; 73030-RT; 80048; 82947; 85027; 92507-GN; 92523-GN; 97110-GP; 97112-GP; 97116-GP; 97129-GO; 97161-GP; 97165-GO; 97530-GO; 97535-GO; A9270-GY; J1644; J1815-GY

== ENCOUNTER 2023-11-25 08:24 | Emergency (ER) | payer MEDICARE, BC ==
[2023-11-25 09:23] LABS: HEMATOCRIT 38.9 % (40.0-54.0); HEMOGLOBIN 12.7 g/dL (14.0-18.0); MEAN CORPUSCULAR HEMOGLOBIN 31.4 pg (27.0-34.0); MEAN CORPUSCULAR HGB CONC 32.6 g/dL (33.0-35.0); PLATELET COUNT,PLT 106 10^3/uL (150-450); RED BLOOD CELL COUNT 4.05 10^6/uL (4.6-6.2); WHITE BLOOD CELL COUNT,WBC 8.9 10^3/uL (5.0-10.0)
[2023-11-25] MEDS: Sodium Chloride 0.9% 1,000 ML IV ONE (09:23)
[2023-11-25] MEDS: Sodium Chloride 0.9% 10 ML Syringe FLUSH PRN (09:23)
[2023-11-25] MEDS: Lidocaine 5% Oint 35.44 GM Tube TOP ONE (09:25)
[2023-11-25 09:38] LABS: CALCIUM 9.4 mg/dL (8.5-10.1); CREATININE 1.08 mg/dL (0.70-1.30); EST CRCL DRUG DOSING (CG) 52.73 mL/min
[2023-11-25 09:49] VITALS: BP 161/76; PULSE 67
[2023-11-25 09:49] LABS: BAND PERCENT MAN 1 %; LYMPHOCYTES PERCENT MAN 17 % (20-50); MONOCYTES PERCENT MAN 3 % (2-8); SEG NEUTROPHILS PERCENT MAN 79 % (42-75)
[2023-11-25] MEDS: Lactulose Soln 10 GM/15 ML 30 ML UD Cup PO ONE (10:31)
== END 2023-11-25 10:58 | disposition home or self-care (01) ==
LOC: DL.ED 08:24
DX: K64.8 Other hemorrhoids (principal); E78.00 Pure hypercholesterolemia, unspecified; I10 Essential (primary) hypertension; K21.9 Gastro-esophageal reflux disease without esophagitis; E11.9 Type 2 diabetes mellitus without complications; Z79.84 Long term (current) use of oral hypoglycemic drugs; Z79.899 Other long term (current) drug therapy
CPT/HCPCS: 36415; 74019; 80048; 85025; 99283; 99284; A9270-GY; J3490; J7030

== ENCOUNTER 2024-01-02 19:51 | Emergency (ER) | payer MEDICARE, BC ==
[2024-01-02 20:28] VITALS: BP 148/79; PULSE 102
[2024-01-02] MEDS: Sodium Chloride 0.9% 1,000 ML IV ONE ×2 (20:59→21:20)
[2024-01-02 21:19] LABS: HEMATOCRIT 37.9 % (40.0-54.0); HEMOGLOBIN 12.2 g/dL (14.0-18.0); MEAN CORPUSCULAR HEMOGLOBIN 31.4 pg (27.0-34.0); MEAN CORPUSCULAR HGB CONC 32.2 g/dL (33.0-35.0); MEAN CORPUSCULAR VOLUME 97.4 fL (80-100); RED BLOOD CELL COUNT 3.89 10^6/uL (4.6-6.2); WHITE BLOOD CELL COUNT,WBC 10.8 10^3/uL (5.0-10.0)
[2024-01-02 21:23] LABS: A/G RATIO 1.1; ALANINE AMINOTRANSFERASE,ALT 14 U/L (16-63); ALBUMIN 3.6 g/dL (3.4-5.0); ALKALINE PHOSPHATASE 79 U/L (46-116); ANION GAP 11.1 mEq/L (7-13); ASPARTATE AMNIOTRANSFERASE,AST 17 U/L (15-37); BILIRUBIN TOTAL 0.6 mg/dL (0.2-1.0); BLOOD UREA NITROGEN,BUN 22 mg/dL (7-18); BUN/CREATININE RATIO 17.2 (No establ ref range); CALCIUM 8.9 mg/dL (8.5-10.1); CARBON DIOXIDE,CO2 29 mmol/L (21-32); CHLORIDE,CL 103 mmol/L (98-107); CREATININE 1.28 mg/dL (0.70-1.30); EST CRCL DRUG DOSING (CG) 44.49 mL/min; GLUCOSE RANDOM 113 mg/dL (70-99); MAGNESIUM 1.8 mg/dL (1.8-2.4); POTASSIUM,K 4.1 mmol/L (3.5-5.1); SODIUM,NA 139 mmol/L (136-145)
[2024-01-02 21:24] LABS: PLATELET COUNT,PLT 78 10^3/uL (150-450)
[2024-01-02 21:31] LABS: ESTIMATED GFR 56 mL/min (>=60); ETHANOL BLOOD MEDICAL < 3 mg/dL (0)
[2024-01-02 21:50] LABS: APPEARANCE,URINE CLEAR (CLEAR); BILIRUBIN,URINE NEGATIVE (NEGATIVE); COLOR,URINE YELLOW (YELLOW); GLUCOSE,URINE NEGATIVE (NEGATIVE); KETONES,URINE NEGATIVE (NEGATIVE); LEUKOCYTE ESTERASE,URINE NEGATIVE (NEGATIVE); NITRITE,URINE NEGATIVE (NEGATIVE); OCCULT BLOOD,URINE NEGATIVE (NEGATIVE); PROTEIN,URINE NEGATIVE (NEGATIVE); UROBILINOGEN,URINE 0.2 mg/dL (0.2-1.0)
[2024-01-02 21:54] LABS: BAND PERCENT MAN 2 %; LYMPHOCYTES PERCENT MAN 13 % (20-50); MONOCYTES PERCENT MAN 7 % (2-8); NRBC MANUAL 1 /100WBC; SEG NEUTROPHILS PERCENT MAN 78 % (42-75)
== END 2024-01-02 23:55 | disposition home or self-care (01) ==
LOC: DL.ED 19:51
DX: E86.0 Dehydration (principal); I10 Essential (primary) hypertension; E78.00 Pure hypercholesterolemia, unspecified; K21.9 Gastro-esophageal reflux disease without esophagitis; E11.9 Type 2 diabetes mellitus without complications; Z87.891 Personal history of nicotine dependence; Z79.899 Other long term (current) drug therapy; Z79.890 Hormone replacement therapy
CPT/HCPCS: 36415; 70450; 80053; 80307; 81003; 82947; 83735; 84484; 85025; 93005; 93010; 96360; 96361; 99284; 99285; J7030

== ENCOUNTER 2024-10-07 09:48 | Emergency (ER) | payer MEDICARE, BC ==
[2024-10-07] MEDS ORDERED: Sodium Chloride 0.9% 10 ML Syringe FLUSH PRN ×2 (10:06)
[2024-10-07 10:13] LABS: HEMATOCRIT 38.7 % (40.0-54.0); HEMOGLOBIN 12.6 g/dL (14.0-18.0); MEAN CORPUSCULAR HEMOGLOBIN 31.5 pg (27.0-34.0); MEAN CORPUSCULAR HGB CONC 32.6 g/dL (33.0-35.0); MEAN CORPUSCULAR VOLUME 96.8 fL (80-100); PLATELET COUNT,PLT 123 10^3/uL (150-450); WHITE BLOOD CELL COUNT,WBC 9.3 10^3/uL (5.0-10.0)
[2024-10-07 10:15] VITALS: BP 152/118; PULSE 117
[2024-10-07] MEDS: Metoprolol Succinate 50 MG Tab.ER PO ONE (10:15)
[2024-10-07 10:20] LABS: PROTHROMBIN TIME 19.8 SEC (9.0-12.0)
[2024-10-07 10:27] LABS: ANION GAP 14.9 mEq/L (7-13); BILIRUBIN TOTAL 1.3 mg/dL (0.2-1.0); BUN/CREATININE RATIO 11.6 (No establ ref range); CALCIUM 9.9 mg/dL (8.5-10.1); CREATININE 1.29 mg/dL (0.70-1.30); EST CRCL DRUG DOSING (CG) 44.15 mL/min; POTASSIUM,K 3.9 mmol/L (3.5-5.1); PROTEIN TOTAL,TP 7.9 g/dL (6.4-8.2)
[2024-10-07 10:33] LABS: LYMPHOCYTES PERCENT MAN 13 % (20-50); MONOCYTES PERCENT MAN 7 % (2-8); SEG NEUTROPHILS PERCENT MAN 80 % (42-75)
== END 2024-10-07 11:25 | disposition home or self-care (01) ==
LOC: DL.ED 09:48
DX: I48.91 Unspecified atrial fibrillation (principal); E78.00 Pure hypercholesterolemia, unspecified; I10 Essential (primary) hypertension; K21.9 Gastro-esophageal reflux disease without esophagitis; E11.9 Type 2 diabetes mellitus without complications; Z79.899 Other long term (current) drug therapy; Z79.890 Hormone replacement therapy; Z79.84 Long term (current) use of oral hypoglycemic drugs
CPT/HCPCS: 36415; 71045; 80053; 83880; 84484; 85025; 85610; 93005; 93010; 99284; 99285; A9270